=== PATIENT | male | born 1990 | race Caucasian/White ===

== ENCOUNTER 2017-03-26 08:27 | Emergency (ER) | payer BC ==
--- NOTE | 2017-03-26 08:59 | ED ---
General Adult HPI - General Chief complaint: Skin/Abscess/Foreign Body Stated complaint: FB IN THROAT Time Seen by Provider: 03/26/17 08:30 Source: patient, RN notes reviewed Mode of arrival: ambulatory Limitations: no limitations - History of Present Illness Initial comments: This is a 26-year-old male who states he was eating pistachios last night around midnight and he believes he swallowed shell. Patient states he woke up this morning felt the child was still in his esophagus he vomited once and it felt as though it moved up into the right side of his throat. Patient states he was a little blood in the emesis not a lot. Patient states it does feel painful to swallow but he is able to swallow at this time per patient denies any difficult to breathing at any time. Patient does believe it wasn't shell. - Related Data Home Medications Medication Instructions Recorded Confirmed Dextroamphetamine/Amphetamine 30 mg PO DAILY 08/27/15 03/26/17 [Adderall] Allergies Allergy/AdvReac Type Severity Reaction Status Date / Time tramadol Allergy Itching Verified 03/26/17 08:48 Review of Systems ROS Statement: Those systems with pertinent positive or pertinent negative responses have been documented in the HPI. ROS Other: All systems not noted in ROS Statement are negative. Past Medical History Additional Past Medical History / Comment(s): back pain History of Any Multi-Drug Resistant Organisms: None Reported Past Surgical History: Orthopedic Surgery Additional Past Surgical History / Comment(s): BILATERAL KNEE SURGERY Past Psychological History: ADD/ADHD Smoking Status: Current some day smoker Past Alcohol Use History: Occasional Past Drug Use History: Marijuana General Exam - General Exam Comments Initial Comments: GENERAL: Patient is well-developed and well-nourished. Patient is nontoxic and well- hydrated and is in mild distress. ENT: Neck is soft and supple. No significant lymphadenopathy is noted. Oropharynx is clear. Moist mucous membranes. Neck has full range of motion without eliciting any pain. EYES: The sclera were anicteric and conjunctiva were pink and moist. Extraocular movements were intact and pupils were equal round and reactive to light. Eyelids were unremarkable. PULMONARY: Unlabored respirations. Good breath sounds bilaterally. No audible rales rhonchi or wheezing was noted. CARDIOVASCULAR: There is a regular rate and rhythm without any murmurs gallops or rubs. ABDOMEN: Soft and nontender with normal bowel sounds. SKIN: Skin is clear with no lesions or rashes and otherwise unremarkable. NEUROLOGIC: Patient is alert and oriented x3. Cranial nerves II through XII are grossly intact. Motor and sensory are also intact. Normal speech, volume and content. Symmetrical smile. MUSCULOSKELETAL: Normal extremities with adequate strength and full range of motion. LYMPHATICS: No significant lymphadenopathy is noted PSYCHIATRIC: Normal psychiatric evaluation. Limitations: no limitations Course Vital Signs 03/26/17 03/26/17 03/26/17 08:29 08:47 09:27 Temperature 98.3 F 97.8 F Pulse Rate 95 100 93 Respiratory 18 18 18 Rate Blood Pressure 154/104 150/91 143/81 O2 Sat by Pulse 95 100 99 Oximetry 03/26/17 10:33 Temperature 98.0 F Pulse Rate 97 Respiratory 18 Rate Blood Pressure 143/79 O2 Sat by Pulse 98 Oximetry Medical Decision Making - Medical Decision Making I spoke with Dr. Gillis she agreed to come in and do an endoscopy on the patient to determine if the patient had a pistachio shell in his throat. Dr. Maciel came in and found an area that appeared to be irritated in the esophagus but no foreign body was found. She was able to eat and drink without problem. Disposition Clinical Impression: Globus hystericus Disposition: HOME SELF-CARE Instructions: Esophageal Foreign Body (ED) Referrals: Bob Carson MD [Primary Care Provider] - 1-2 days Time of Disposition: 11:35
--- NOTE | 2017-03-26 09:32 | XR ---
EXAMINATION TYPE: XR soft tissue neck DATE OF EXAM: 03/26/2017 9:03 AM COMPARISON: NONE HISTORY: Choking with pain TECHNIQUE: 2 views FINDINGS: Prevertebral soft tissue structures within normal limits. Epiglottis has a normal appearanc e. Osseous structures intact. Lung apices clear. No radiopaque foreign body IMPRESSION: No acute process
[2017-03-26] MEDS ORDERED: KETOROLAC 60 MG/2 ML VIAL IM STA (10:16)
[2017-03-26] MEDS ORDERED: KETOROLAC 60 MG/2 ML VIAL IVP STA (10:24)
[2017-03-26] MEDS ORDERED: SODIUM CHLORIDE 0.9% 1,000 ML IV ONE (11:05)
[2017-03-26] MEDS ORDERED: GLYCOPYRROLATE 0.2 MG/ML 2 ML VIAL ONE (11:14)
[2017-03-26] MEDS ORDERED: PROPOFOL 10 MG/ML 20 ML VIAL IV ONE (11:14)
[2017-03-26] MEDS ORDERED: MIDAZOLAM 2 MG/2 ML VIAL ONE (11:14)
[2017-03-26] MEDS ORDERED: LIDOCAINE 1% INJ 10MG/ML (20 ML MDV) ONE (11:14)
--- NOTE | 2017-03-26 11:35 | P.PCN ---
Date of Procedure: 03/26/17 Procedure(s) Performed: BRIEF HISTORY: Patient is a 26-year-old, pleasant, white male, came into the emergency room with acute dysphagia and odynophagia since last night. He ate pistachio with Shell and since then he started having severe pain in the suprasternal notch area with swallowing. He also had an episode of hematemesis while in the ER. He is hence scheduled for an upper endoscopy to evaluate further.. PROCEDURE PERFORMED: Esophagogastroduodenoscopy. PREOPERATIVE DIAGNOSIS: Acute food dysphagia and odynophagia. IV sedation per anesthesia. PROCEDURE: After informed consent was obtained, the patient was brought into the endoscopy unit. IV sedation was administered by Anesthesia under continuous monitoring. Initially the Olympus GIF-140 video endoscope was inserted into the mouth. Esophagus intubated without any difficulty. It was gradually advanced into the stomach and duodenum and carefully examined. The bulb and the second part of the duodenum appeared normal. The scope at this time was withdrawn to the stomach, adequately insufflated with air, and upon careful examination, mucosa of the antrum, body, cardia and the fundus appeared normal. The scope was then withdrawn into the esophagus. The GE junction was located at 39 cm from the incisors. The esophagus appeared normal. There were no erosions or ulcerations seen and the patient tolerated the procedure well. The pharyngeal area was also carefully examined and the visualized portions appeared normal with no foreign body noted. IMPRESSION: 1. Normal-appearing esophagus with no evidence of food impaction. 2. Normal-appearing pharynx with no foreign body noted. RECOMMENDATIONS: The findings of this examination were discussed with the patient. He can have a trial of soft diet and can be discharged home today..
[2017-03-26 13:19] VITALS: RESP 18
[2017-03-26 13:21] VITALS: BP 116/58; PULSE 88; TEMP 98.3
== END 2017-03-26 13:00 | disposition home or self-care (01) ==
LOC: EC 08:27
DX: F45.8 Other somatoform disorders (principal); F90.9 Attention-deficit hyperactivity disorder, unspecified type; F17.200 Nicotine dependence, unspecified, uncomplicated; Z79.899 Other long term (current) drug therapy; Z88.6 Allergy status to analgesic agent
CPT/HCPCS: 99283; 96374; 96361 ×2; 70360; 43235; J2250; J2001; J1885; J2704

== ENCOUNTER 2017-04-14 16:33 | Emergency (ER) | payer BC ==
[2017-04-14 16:51] VITALS: BP 145/70; PULSE 70; RESP 16; TEMP 97.6
--- NOTE | 2017-04-14 17:15 | ED ---
ENT HPI - General Chief complaint: Dental/Oral Stated complaint: Oral Pain Time Seen by Provider: 04/14/17 17:06 Source: patient, RN notes reviewed Mode of arrival: ambulatory Limitations: no limitations - History of Present Illness Initial comments: This is a 26-year-old male presents for dental pain. Patient states started today in the right upper region. Denies fever or chills. Patient states she has mild swelling. Patient did not contact a dentist. He tried some Orajel no relief no Tylenol Motrin. - Related Data Home Medications Medication Instructions Recorded Confirmed Dextroamphetamine/Amphetamine 30 mg PO DAILY 08/27/15 03/26/17 [Adderall] Previous Rx's Medication Instructions Recorded Acetaminophen-Codeine 300-30mg 1 tab PO Q4H PRN #20 tablet 04/14/17 [Tylenol #3] Ibuprofen [Motrin] 600 mg PO Q8HR PRN #30 tab 04/14/17 Penicillin V Potassium [Pen Vee K] 500 mg PO QID #40 tab 04/14/17 Allergies Allergy/AdvReac Type Severity Reaction Status Date / Time tramadol Allergy Itching Verified 03/26/17 08:48 Review of Systems ROS Statement: Those systems with pertinent positive or pertinent negative responses have been documented in the HPI. ROS Other: All systems not noted in ROS Statement are negative. Past Medical History Additional Past Medical History / Comment(s): back pain History of Any Multi-Drug Resistant Organisms: None Reported Past Surgical History: Orthopedic Surgery Additional Past Surgical History / Comment(s): BILATERAL KNEE SURGERY Past Psychological History: ADD/ADHD Smoking Status: Current some day smoker Past Alcohol Use History: Occasional Past Drug Use History: Marijuana General Exam Limitations: no limitations General appearance: alert, in no apparent distress Head exam: Present: atraumatic, normocephalic, normal inspection ENT exam: Present: mucous membranes moist. Absent: normal exam, normal oropharynx (Edentulous multiple dental caries, dental fracture) Neck exam: Present: normal inspection, full ROM. Absent: tenderness, meningismus, lymphadenopathy Respiratory exam: Present: normal lung sounds bilaterally. Absent: respiratory distress, wheezes, rales, rhonchi, stridor Cardiovascular Exam: Present: regular rate, normal rhythm, normal heart sounds. Absent: systolic murmur, diastolic murmur, rubs, gallop, clicks Course Vital Signs 04/14/17 16:50 Temperature 97.6 F Pulse Rate 70 Respiratory 16 Rate Blood Pressure 145/70 O2 Sat by Pulse 100 Oximetry Medical Decision Making - Medical Decision Making 26-year-old male presented for dental pain. Patient discharged on antibiotics pain medication follow-up with dentist. Disposition Clinical Impression: Toothache Disposition: HOME SELF-CARE Instructions: Toothache (ED) Additional Instructions: Please return to the Emergency Department if symptoms worsen or any other concerns.Please follow up with the [facility]. [facility] [place] [address]. Phone number for new patients or [phone] for existing patients. Prescriptions: Acetaminophen-Codeine 300-30mg [Tylenol #3] 1 tab PO Q4H PRN #20 tablet PRN Reason: pain Ibuprofen [Motrin] 600 mg PO Q8HR PRN #30 tab PRN Reason: Pain Penicillin V Potassium [Pen Vee K] 500 mg PO QID #40 tab Referrals: Bob Carson MD [Primary Care Provider] - 1-2 days Time of Disposition: 17:15
== END 2017-04-14 17:22 | disposition home or self-care (01) ==
LOC: EC 16:33
DX: K08.89 Other specified disorders of teeth and supporting structures (principal); F90.9 Attention-deficit hyperactivity disorder, unspecified type; F17.200 Nicotine dependence, unspecified, uncomplicated; Z79.899 Other long term (current) drug therapy; Z88.6 Allergy status to analgesic agent
CPT/HCPCS: 99282

== ENCOUNTER 2017-06-17 14:21 | Emergency (ER) | payer BC ==
[2017-06-17 14:36] VITALS: BP 141/90; PULSE 64; RESP 20; TEMP 97.3
[2017-06-17] MEDS ORDERED: KETOROLAC 30 MG/ML 1 ML VIAL IM STA (14:52)
[2017-06-17] MEDS ORDERED: DIAZEPAM 5 MG/ML 2 ML SYRINGE IM ONE (14:52)
--- NOTE | 2017-06-17 14:57 | ED ---
General Adult HPI - General Chief complaint: Back Pain/Injury Stated complaint: Lower Back/Abd Pain Time Seen by Provider: 06/17/17 14:38 Source: patient, RN notes reviewed Mode of arrival: wheelchair Limitations: no limitations - History of Present Illness Initial comments: 26-year-old male presents for evaluation of right lower back pain. Patient was leveling off the central for a swimming pool yesterday. Denies any specific trauma. Complains of gradual onset worsening right lower back pain. Patient has no previous history of significant back pain. No bowel or bladder incontinence. No sensory changes or weakness in the lower extremities. Patient did not take any medication prior to coming to the emergency department. States the pain is sharp in nature, moderate to severe. - Related Data Home Medications Medication Instructions Recorded Confirmed Dextroamphetamine/Amphetamine 30 mg PO DAILY 08/27/15 06/17/17 [Adderall] Previous Rx's Medication Instructions Recorded Ibuprofen [Motrin] 600 mg PO Q8HR PRN #24 tab 06/17/17 Allergies Allergy/AdvReac Type Severity Reaction Status Date / Time tramadol Allergy Itching Verified 06/17/17 14:36 Review of Systems ROS Statement: Those systems with pertinent positive or pertinent negative responses have been documented in the HPI. ROS Other: All systems not noted in ROS Statement are negative. Cardiovascular: Denies: chest pain Endocrine: Denies: fatigue Gastrointestinal: Denies: abdominal pain, nausea, vomiting Musculoskeletal: Reports: back pain Neurological: Denies: headache, weakness Past Medical History Additional Past Medical History / Comment(s): back pain History of Any Multi-Drug Resistant Organisms: None Reported Past Surgical History: Orthopedic Surgery Additional Past Surgical History / Comment(s): BILATERAL KNEE SURGERY Past Psychological History: ADD/ADHD Smoking Status: Current some day smoker Past Alcohol Use History: Occasional Past Drug Use History: Marijuana General Exam Limitations: no limitations General appearance: alert, in no apparent distress Head exam: Present: atraumatic, normocephalic Eye exam: Present: normal appearance, PERRL ENT exam: Present: normal exam, mucous membranes moist Neck exam: Present: normal inspection, full ROM. Absent: tenderness Respiratory exam: Present: normal lung sounds bilaterally. Absent: respiratory distress Cardiovascular Exam: Present: regular rate, normal rhythm GI/Abdominal exam: Present: soft. Absent: distended, tenderness Extremities exam: Present: normal inspection, full ROM, normal capillary refill. Absent: pedal edema, joint swelling Back exam: Present: normal inspection, muscle spasm, paraspinal tenderness. Absent: tenderness, vertebral tenderness Neurological exam: Present: alert, oriented X3, CN II-XII intact, other (No saddle anesthesia. No midline tenderness). Absent: motor sensory deficit Psychiatric exam: Present: normal affect, normal mood Skin exam: Present: warm, dry Course Vital Signs 06/17/17 14:33 Temperature 97.3 F L Pulse Rate 64 Respiratory 20 Rate Blood Pressure 141/90 O2 Sat by Pulse 100 Oximetry Medical Decision Making - Medical Decision Making 26 yo male presenting with right lower back pain. Patient has tenderness muscle spasm in the right paraspinal muscles. Strength in the lower extremities is 5 out of 5, no concerning features of history or examination. Pain is nontraumatic, associated with overuse. Patient is given Toradol and Valium. He is not driving. He will be given a prescription for Motrin and should follow-up with his primary care physician. Return to emergency department with worsening symptoms. Disposition Clinical Impression: Strain of lumbar region Disposition: HOME SELF-CARE Condition: Good Instructions: Acute Low Back Pain (ED) Prescriptions: Ibuprofen [Motrin] 600 mg PO Q8HR PRN #24 tab PRN Reason: Pain Referrals: Bob Carson MD [Primary Care Provider] - 1-2 days Time of Disposition: 14:57
== END 2017-06-17 15:18 | disposition home or self-care (01) ==
LOC: EC 14:21
DX: S39.012A Strain of muscle, fascia and tendon of lower back, initial encounter (principal); F90.9 Attention-deficit hyperactivity disorder, unspecified type; F17.200 Nicotine dependence, unspecified, uncomplicated; Z88.6 Allergy status to analgesic agent; Z79.899 Other long term (current) drug therapy; X50.1XXA Overexertion from prolonged static or awkward postures, initial encounter; Y93.89 Activity, other specified
CPT/HCPCS: 99283; 96372 ×2; J3360; J1885

== ENCOUNTER 2017-12-28 18:23 | Emergency (ER) | payer BC, OTHER ==
[2017-12-28 19:25] VITALS: BP 122/54; PULSE 63; RESP 18; TEMP 98.7
--- NOTE | 2017-12-28 19:59 | ED ---
URI HPI - General Chief Complaint: Upper Respiratory Infection Stated Complaint: cold & headache Time Seen by Provider: 12/28/17 19:47 Source: patient, RN notes reviewed, old records reviewed Mode of arrival: ambulatory - History of Present Illness Initial Comments: Patient is a 27 year old male with fever, sinus headache, chills, and minor cough for 3 days. He reports he called into work today. He states taht he ahs been taking motrin and tylenol. He reports that he has all childhood vaccines. He did not receive the infleunza vaccine. Denies any other symptoms. - Related Data Home Medications Medication Instructions Recorded Confirmed Acetaminophen [Tylenol] 650 mg PO Q6H PRN 12/28/17 12/28/17 Ibuprofen [Motrin] 800 mg PO Q8H PRN 12/28/17 12/28/17 Previous Rx's Medication Instructions Recorded Amoxic-Pot Clav 875-125Mg 1 tab PO Q12HR #20 tablet 12/28/17 [Augmentin 875-125] Oseltamivir [Tamiflu] 75 mg PO Q12HR #10 cap 12/28/17 Allergies Allergy/AdvReac Type Severity Reaction Status Date / Time tramadol Allergy Itching Verified 12/28/17 19:56 Review of Systems ROS Statement: Those systems with pertinent positive or pertinent negative responses have been documented in the HPI. ROS Other: All systems not noted in ROS Statement are negative. Past Medical History Additional Past Medical History / Comment(s): back pain History of Any Multi-Drug Resistant Organisms: None Reported Past Surgical History: Orthopedic Surgery Additional Past Surgical History / Comment(s): BILATERAL KNEE SURGERY Past Psychological History: ADD/ADHD Smoking Status: Current some day smoker Past Alcohol Use History: Occasional Past Drug Use History: Marijuana General Exam - General Exam Comments Initial Comments: This is a 27 year old male. No acute distress. General appearance: alert, in no apparent distress Head exam: Present: atraumatic, normocephalic, normal inspection Eye exam: Present: normal appearance, PERRL, EOMI. Absent: scleral icterus, conjunctival injection, periorbital swelling ENT exam: Present: normal exam, mucous membranes moist Neck exam: Present: normal inspection. Absent: tenderness, meningismus, lymphadenopathy Respiratory exam: Present: normal lung sounds bilaterally. Absent: respiratory distress, wheezes, rales, rhonchi, stridor Cardiovascular Exam: Present: regular rate, normal rhythm, normal heart sounds. Absent: systolic murmur, diastolic murmur, rubs, gallop, clicks GI/Abdominal exam: Present: soft, normal bowel sounds. Absent: distended, tenderness, guarding, rebound, rigid Back exam: Present: normal inspection Neurological exam: Present: alert, oriented X3, CN II-XII intact Psychiatric exam: Present: normal affect, normal mood Course Vital Signs 12/28/17 19:23 Temperature 98.7 F Pulse Rate 63 Respiratory 18 Rate Blood Pressure 122/54 O2 Sat by Pulse 100 Oximetry Medical Decision Making - Medical Decision Making 27 year old male with 3 days of sinus pain, fever, chills, minor cough. Patient at this time will be treated for sinusisits. Discussed possbility of viral influenza as well. Dsicussed continue to take OTC medications. Patient understands treatment plan and will comply. Disposition Clinical Impression: Upper respiratory infection, Sinusitis Disposition: HOME SELF-CARE Condition: Good Instructions: Upper Respiratory Infection (ED) Additional Instructions: Patient is keep taking Motrin and Tylenol for fever and pain. Take the medication as prescribed. Follow-up with primary care provider if symptoms continue to persist. Return to the emergency department if any alarming signs or symptoms occur. Prescriptions: Amoxic-Pot Clav 875-125Mg [Augmentin 875-125] 1 tab PO Q12HR #20 tablet Oseltamivir [Tamiflu] 75 mg PO Q12HR #10 cap Referrals: Bob Carson MD [Primary Care Provider] - 1-2 days Time of Disposition: 19:58
== END 2017-12-28 20:07 | disposition home or self-care (01) ==
LOC: EC 18:23
DX: J06.9 Acute upper respiratory infection, unspecified (principal); J32.9 Chronic sinusitis, unspecified; F17.200 Nicotine dependence, unspecified, uncomplicated; Z88.6 Allergy status to analgesic agent
CPT/HCPCS: 99283

== ENCOUNTER 2018-01-02 21:04 | Emergency (ER) | payer BC, OTHER ==
[2018-01-02 21:17] VITALS: BP 130/70; RESP 18; TEMP 98.6
[2018-01-02] MEDS ORDERED: predniSONE 50 MG TAB PO STA (21:23)
[2018-01-02] MEDS ORDERED: diphenhydrAMINE 25 MG CAP PO STA (21:23)
[2018-01-02] MEDS ORDERED: FAMOTIDINE 20 MG TAB PO STA (21:23)
--- NOTE | 2018-01-02 21:28 | ED ---
General Adult HPI - General Chief complaint: Skin/Abscess/Foreign Body Stated complaint: poss allergic reaction Time Seen by Provider: 01/02/18 21:18 Source: patient, RN notes reviewed Mode of arrival: ambulatory Limitations: no limitations - History of Present Illness Initial comments: This is a 27-year-old male who presents to emergency department with chief complaint of possible allergic reaction. Patient states that approximate 5:30 this evening he noticed hives on his bilateral elbows. Patient denies any exposure to new fragrances, laundry detergents or soaps. He denies allergies to foods or medications. Patient is unable to pinpoint what he came into contact with. Patient states the only medication he has taken today is TheraFlu. He states that the rash is very itchy and has a burning sensation. He states that he has had a productive cough with yellow phlegm. Patient states that he feels he is having difficulty breathing. He states that he has been feeling very warm and sweating today. Denies abdominal pain, nausea or vomiting, diarrhea or constipation, headache or dizziness. - Related Data Home Medications Medication Instructions Recorded Confirmed Acetaminophen [Tylenol] 650 mg PO Q6H PRN 12/28/17 12/28/17 Ibuprofen [Motrin] 800 mg PO Q8H PRN 12/28/17 12/28/17 Previous Rx's Medication Instructions Recorded Amoxic-Pot Clav 875-125Mg 1 tab PO Q12HR #20 tablet 12/28/17 [Augmentin 875-125] Oseltamivir [Tamiflu] 75 mg PO Q12HR #10 cap 12/28/17 Famotidine [Pepcid] 20 mg PO BID #8 tablet 01/02/18 diphenhydrAMINE [Benadryl] 25 mg PO QID PRN #16 capsule 01/02/18 predniSONE 20 mg PO DAILY #4 tab 01/02/18 Allergies Allergy/AdvReac Type Severity Reaction Status Date / Time tramadol Allergy Itching Verified 01/02/18 21:15 Review of Systems ROS Statement: Those systems with pertinent positive or pertinent negative responses have been documented in the HPI. ROS Other: All systems not noted in ROS Statement are negative. Past Medical History Additional Past Medical History / Comment(s): back pain History of Any Multi-Drug Resistant Organisms: None Reported Past Surgical History: Orthopedic Surgery Additional Past Surgical History / Comment(s): BILATERAL KNEE SURGERY Past Psychological History: ADD/ADHD Smoking Status: Current some day smoker Past Alcohol Use History: Rare Past Drug Use History: Marijuana General Exam - General Exam Comments Initial Comments: General: Awake and alert, well-developed; in no apparent distress. HEENT: Head atraumatic, normocephalic. Pupils are equal, round and reactive to light. Extraocular movements intact. Oropharynx moist without erythema or exudate. Neck: Supple. Normal ROM. Cardiovascular: Regular rate and rhythm. No murmurs, rubs or gallops. Chest symmetrical. Respiratory: Normal respiratory effort with no use of accessory muscles. Rhonchi present left upper lung. No wheezes or rales. Musculoskeletal: Normal ROM, no tenderness bilateral upper and lower extremities. Ambulating normally. Skin: [place], warm and dry. Urticaria noted at bilateral elbows. Neurological: Alert and oriented x3. CN II-XII grossly intact. Speech is fluent and answers are appropriate. No focal neuro deficits. Psychiatric: Normal mood and affect. No overt signs of depression or anxiety noted. Limitations: no limitations Course Vital Signs 01/02/18 21:15 Temperature 98.6 F Pulse Rate 78 Respiratory 18 Rate Blood Pressure 130/70 O2 Sat by Pulse 97 Oximetry Medical Decision Making - Medical Decision Making This is a 27-year-old male who presents to the emergency department with chief complaint of possible allergic reaction. Patient does have urticaria on bilateral elbows. He was given Pepcid, Benadryl and prednisone while in the emergency department. Patient also complained of a productive cough with some difficulty breathing. Diffuse rhonchi noted in left upper lung. A chest x-ray was obtained. X-ray revealed evidence for bronchitis. Recommended symptomatic support and increasing fluid intake. Patient's vital signs are stable and he is in no acute distress. He will be discharged home with further prescriptions for Pepcid, Benadryl and prednisone. Return parameters were discussed. Patient is in agreement with plan and voices understanding. All questions were answered. - Radiology Data Radiology results: report reviewed Chest x-ray impression: Correlate for bronchitis, reactive airways disease. Disposition Clinical Impression: Urticaria, Bronchitis Disposition: HOME SELF-CARE Condition: Good Instructions: Urticaria (ED), Acute Bronchitis (ED) Additional Instructions: Please take medications as prescribed. Please follow up with primary care provider within 1-2 days. Return to emergency department if symptoms should worsen or any concerns arise. Prescriptions: diphenhydrAMINE [Benadryl] 25 mg PO QID PRN #16 capsule PRN Reason: Itching Famotidine [Pepcid] 20 mg PO BID #8 tablet predniSONE 20 mg PO DAILY #4 tab Referrals: Bob Carson MD [Primary Care Provider] - 1-2 days Time of Disposition: 21:53
--- NOTE | 2018-01-02 21:38 | XR ---
EXAMINATION TYPE: XR chest 2V DATE OF EXAM: 01/02/2018 COMPARISON: Prior chest x-ray 07/03/2016 HISTORY: Cough and difficulty breathing TECHNIQUE: Frontal and lateral views of the chest are obtained. FINDINGS: Patient is rotated. There is no focal air space opacity, pleural effusion, or pneumothorax seen. The cardiac silhouette size is within normal limits. There is bronchial wall thickening. The osseous structures are intact. IMPRESSION: Correlate for bronchitis, reactive airways disease
[2018-01-02 22:00] VITALS: PULSE 60
== END 2018-01-02 22:00 | disposition home or self-care (01) ==
LOC: EC 21:04
DX: L50.9 Urticaria, unspecified (principal); J40 Bronchitis, not specified as acute or chronic; F17.200 Nicotine dependence, unspecified, uncomplicated; Z88.5 Allergy status to narcotic agent
CPT/HCPCS: 71046; 99284; J7512

== ENCOUNTER 2018-01-27 20:21 | Emergency (ER) | payer OTHER ==
[2018-01-27 20:34] VITALS: BP 133/74; PULSE 85; RESP 16; TEMP 98.2
--- NOTE | 2018-01-27 20:55 | ED ---
General Adult HPI - General Chief complaint: Dental/Oral Stated complaint: dental pain Time Seen by Provider: 01/27/18 20:44 Source: patient Mode of arrival: ambulatory Limitations: no limitations - History of Present Illness Initial comments: 27-year-old male presents to the emergency department for complaints of tooth pain since yesterday. Patient states a filling fell out. Patient states he does not have a dentist. He states the pain is severe and he is uncomfortable. He states that hot and cold liquids hurt his tooth and it even hurts to swallow. Patient states he took 600 mg of ibuprofen 4 hours ago which helps minimally. He states he would be willing to go to a free clinic. Patient denies fever or chills. Patient denies neck pain or sore throat. He also denies difficulty opening and closing the jaw. - Related Data Home Medications Medication Instructions Recorded Confirmed Acetaminophen [Tylenol] 650 mg PO Q6H PRN 12/28/17 12/28/17 Ibuprofen [Motrin] 800 mg PO Q8H PRN 12/28/17 12/28/17 Previous Rx's Medication Instructions Recorded Amoxic-Pot Clav 875-125Mg 1 tab PO Q12HR #20 tablet 12/28/17 [Augmentin 875-125] Oseltamivir [Tamiflu] 75 mg PO Q12HR #10 cap 12/28/17 Famotidine [Pepcid] 20 mg PO BID #8 tablet 01/02/18 diphenhydrAMINE [Benadryl] 25 mg PO QID PRN #16 capsule 01/02/18 predniSONE 20 mg PO DAILY #4 tab 01/02/18 Acetaminophen-Codeine 300-30mg 1 tab PO Q4H PRN #10 tablet 01/27/18 [Tylenol #3] Penicillin V Potassium [Pen Vee K] 500 mg PO Q6H 10 Days tablet 01/27/18 Allergies Allergy/AdvReac Type Severity Reaction Status Date / Time tramadol Allergy Itching Verified 01/27/18 20:34 Review of Systems ROS Statement: Those systems with pertinent positive or pertinent negative responses have been documented in the HPI. ROS Other: All systems not noted in ROS Statement are negative. Past Medical History Additional Past Medical History / Comment(s): back pain History of Any Multi-Drug Resistant Organisms: None Reported Past Surgical History: Orthopedic Surgery Additional Past Surgical History / Comment(s): BILATERAL KNEE SURGERY Past Psychological History: ADD/ADHD Smoking Status: Current some day smoker Past Alcohol Use History: Rare Past Drug Use History: Marijuana General Exam Limitations: no limitations Head exam: Present: atraumatic, normocephalic, normal inspection Eye exam: Present: normal appearance, PERRL, EOMI. Absent: scleral icterus, conjunctival injection, periorbital swelling ENT exam: Present: normal oropharynx (Poor dental hygiene noted. Multiple teeth missing. Patient complains of pain in tooth 3 which appears to be broken or have a missing filling.), mucous membranes moist, TM's normal bilaterally, normal external ear exam. Absent: normal exam Neck exam: Present: normal inspection. Absent: tenderness, meningismus, lymphadenopathy Respiratory exam: Present: normal lung sounds bilaterally. Absent: respiratory distress, wheezes, rales, rhonchi, stridor Cardiovascular Exam: Present: regular rate, normal rhythm, normal heart sounds. Absent: systolic murmur, diastolic murmur, rubs, gallop, clicks GI/Abdominal exam: Present: soft, normal bowel sounds. Absent: distended, tenderness, guarding, rebound, rigid Neurological exam: Present: alert, oriented X3, CN II-XII intact Psychiatric exam: Present: normal affect, normal mood Course Vital Signs 01/27/18 20:32 Temperature 98.2 F Pulse Rate 85 Respiratory 16 Rate Blood Pressure 133/74 O2 Sat by Pulse 100 Oximetry Medical Decision Making - Medical Decision Making 27-year-old male presents to the emergency department for a chief complaint of tooth pain. The pain is into 3. Patient has poor dental hygiene as noted on exam. Patient states he does not have a dentist but would be willing to go to a free clinic. Patient has taken ibuprofen it helps minimally. Discussed pain management with Dr. Sanchez who advised to prescribe a small course of Tylenol 3. Patient will be told to continue ibuprofen helped the swelling as well as ice his face. If pain is severe he is to take the Tylenol 3. He is to follow-up with a dental clinic. Phone number and Address was given on separate piece of paper. He also agrees to take the antibiotic as directed. Please return to the emergency department if you notice the infection spreading or pain worsens. Disposition Clinical Impression: Tooth pain Disposition: HOME SELF-CARE Condition: Good Instructions: Dental Abscess (ED), Toothache (ED) Additional Instructions: Please take antibiotics as directed. Please follow-up with free dental clinic. Use ibuprofen and ice to treat pain. Take Tylenol 3 if pain is severe. [facility] dental clinic: [address] [place] [address] [place], [place] [phone] - call for an appointment Prescriptions: Acetaminophen-Codeine 300-30mg [Tylenol #3] 1 tab PO Q4H PRN #10 tablet PRN Reason: Pain Penicillin V Potassium [Pen Vee K] 500 mg PO Q6H 10 Days tablet Referrals: Bob Carson MD [Primary Care Provider] - 1-2 days Time of Disposition: 21:22
== END 2018-01-27 21:27 | disposition home or self-care (01) ==
LOC: EC 20:21
DX: K08.89 Other specified disorders of teeth and supporting structures (principal); F17.200 Nicotine dependence, unspecified, uncomplicated; Z88.6 Allergy status to analgesic agent
CPT/HCPCS: 99282

== ENCOUNTER 2018-12-12 13:45 | Emergency (ER) | payer BC, OTHER ==
[2018-12-12 13:52] VITALS: BP 141/100; PULSE 106; RESP 16; TEMP 98.2
[2018-12-12] MEDS ORDERED: ACET/COD 300 MG/30 MG STARTER PACK 6 TAB BTL PO STA (14:29)
--- NOTE | 2018-12-12 14:29 | ED ---
ENT HPI - General Chief complaint: Dental/Oral Stated complaint: Dental abscess Time Seen by Provider: 12/12/18 14:19 Source: patient, RN notes reviewed Mode of arrival: ambulatory Limitations: no limitations - History of Present Illness Initial comments: 28-year-old male presents emergency Department with chief complaint of left lower dental pain. Patient states she was at the dental clinic this morning and they are closing early sore and unable take care of him. He states the pain is unbearable. Patient is scheduled go back tomorrow morning. Patient reports no fever or chills. Patient has very poor dentition. Patient denies any difficulty swallowing no difficult opening closing his mouth. - Related Data Home Medications Medication Instructions Recorded Confirmed Acetaminophen [Tylenol] 650 mg PO Q6H PRN 12/28/17 12/28/17 Ibuprofen [Motrin] 800 mg PO Q8H PRN 12/28/17 12/28/17 Previous Rx's Medication Instructions Recorded Amoxic-Pot Clav 875-125Mg 1 tab PO Q12HR #20 tablet 12/28/17 [Augmentin 875-125] Oseltamivir [Tamiflu] 75 mg PO Q12HR #10 cap 12/28/17 Famotidine [Pepcid] 20 mg PO BID #8 tablet 01/02/18 diphenhydrAMINE [Benadryl] 25 mg PO QID PRN #16 capsule 01/02/18 predniSONE 20 mg PO DAILY #4 tab 01/02/18 Acetaminophen-Codeine 300-30mg 1 tab PO Q4H PRN #10 tablet 01/27/18 [Tylenol #3] Penicillin V Potassium [Pen Vee K] 500 mg PO Q6H 10 Days tablet 01/27/18 Penicillin V Potassium [Pen Vee K] 500 mg PO QID #40 tablet 12/12/18 Allergies Allergy/AdvReac Type Severity Reaction Status Date / Time tramadol Allergy Itching Verified 12/12/18 13:52 Review of Systems ROS Statement: Those systems with pertinent positive or pertinent negative responses have been documented in the HPI. ROS Other: All systems not noted in ROS Statement are negative. Past Medical History Additional Past Medical History / Comment(s): back pain History of Any Multi-Drug Resistant Organisms: None Reported Past Surgical History: Orthopedic Surgery Additional Past Surgical History / Comment(s): BILATERAL KNEE SURGERY Past Psychological History: ADD/ADHD Smoking Status: Current some day smoker Past Alcohol Use History: Rare Past Drug Use History: Marijuana General Exam Limitations: no limitations General appearance: alert, in no apparent distress Head exam: Present: atraumatic, normocephalic, normal inspection Eye exam: Present: normal appearance, PERRL, EOMI. Absent: scleral icterus, conjunctival injection, periorbital swelling ENT exam: Present: mucous membranes moist, TM's normal bilaterally. Absent: normal oropharynx (Very poor dentition, multiple dental caries, dental erosion, no drainable abscess multiple dental fractures) Neck exam: Present: normal inspection, full ROM. Absent: tenderness, meningismus, lymphadenopathy Respiratory exam: Present: normal lung sounds bilaterally. Absent: respiratory distress, wheezes, rales, rhonchi, stridor Cardiovascular Exam: Present: regular rate, normal rhythm, normal heart sounds. Absent: systolic murmur, diastolic murmur, rubs, gallop, clicks Skin exam: Present: warm, dry, intact, normal color. Absent: rash Course Vital Signs 12/12/18 13:50 Temperature 98.2 F Pulse Rate 106 H Respiratory 16 Rate Blood Pressure 141/100 O2 Sat by Pulse 98 Oximetry Medical Decision Making - Medical Decision Making 28-year-old male presented for dental pain. Patient be given antibiotics and pain medication. Patient scheduled see dental clinic tomorrow. Return parameters were discussed. Disposition Clinical Impression: Dental caries, Fracture of tooth, Dental abscess Disposition: HOME SELF-CARE Condition: Stable Instructions (If sedation given, give patient instructions): Toothache (ED), Dental Caries (ED) Additional Instructions: Please return to the Emergency Department if symptoms worsen or any other concerns. Prescriptions: Penicillin V Potassium [Pen Vee K] 500 mg PO QID #40 tablet Is patient prescribed a controlled substance at d/c from ED?: No Referrals: Ajay Duque MD [Primary Care Provider] - 1-2 days Time of Disposition: 14:28
== END 2018-12-12 14:45 | disposition home or self-care (01) ==
LOC: EC 13:45
DX: S02.5XXA Fracture of tooth (traumatic), initial encounter for closed fracture (principal); K04.7 Periapical abscess without sinus; K02.9 Dental caries, unspecified; K03.2 Erosion of teeth; F17.200 Nicotine dependence, unspecified, uncomplicated; Z98.890 Other specified postprocedural states; Z88.5 Allergy status to narcotic agent; X58.XXXA Exposure to other specified factors, initial encounter
CPT/HCPCS: 99282

== ENCOUNTER 2019-01-14 22:48 | Emergency (ER) | payer OTHER ==
[2019-01-14 22:57] VITALS: BP 152/97; PULSE 68; RESP 16
[2019-01-14] MEDS ORDERED: ACET/COD 300 MG/30 MG STARTER PACK 6 TAB BTL PO STA (23:02)
[2019-01-14] MEDS ORDERED: BUPIVACAINE (PF) 0.5% 30 ML VIAL SQ STA (23:02)
[2019-01-14 23:39] VITALS: TEMP 98.6
[2019-01-14] MEDS ORDERED: BUPIVACAINE (PF) 0.75% 10 ML VIAL SQ ONE (23:45)
--- NOTE | 2019-01-14 23:57 | ED ---
General Adult HPI - General Chief complaint: Dental/Oral Stated complaint: Dental Pain Following Tooth Extrac. INQUICKER Time Seen by Provider: 01/14/19 22:59 Source: patient, RN notes reviewed Mode of arrival: ambulatory Limitations: no limitations - History of Present Illness Initial comments: 28 year old male presents to the emergency department for a chief complaint of dental pain. Patient got his teeth pulled about 5 days ago. Dental pain started one day after. Patient states he did follow up with the dentist but they told him to take Motrin. He states he will do anything to help pain. He denies any neck pain or stiffness. He denies any sublingual swelling. He denies any sublingual pain. He states all the pain is in the left upper tooth Patient has no other complaints at this time including shortness of breath, chest pain, abdominal pain, nausea or vomiting, headache, or visual changes. - Related Data Home Medications Medication Instructions Recorded Confirmed Ibuprofen [Motrin] 800 mg PO Q8H PRN 12/28/17 01/14/19 Acetaminophen Tab [Tylenol Tab] 1,000 mg PO Q6HR PRN 01/14/19 01/14/19 Allergies Allergy/AdvReac Type Severity Reaction Status Date / Time tramadol Allergy Itching Verified 01/14/19 23:05 Review of Systems ROS Statement: Those systems with pertinent positive or pertinent negative responses have been documented in the HPI. ROS Other: All systems not noted in ROS Statement are negative. Past Medical History Additional Past Medical History / Comment(s): back pain History of Any Multi-Drug Resistant Organisms: None Reported Past Surgical History: Orthopedic Surgery Additional Past Surgical History / Comment(s): BILATERAL KNEE SURGERY Past Psychological History: ADD/ADHD Smoking Status: Current some day smoker Past Alcohol Use History: Rare Past Drug Use History: Marijuana General Exam Limitations: no limitations General appearance: alert, in no apparent distress Head exam: Present: atraumatic, normocephalic, normal inspection Eye exam: Present: normal appearance, PERRL, EOMI. Absent: scleral icterus, conjunctival injection, periorbital swelling ENT exam: Present: normal exam, mucous membranes moist, TM's normal bilaterally , normal external ear exam. Absent: normal oropharynx (Patient has had tooth extractions noted from tooth 11 to tooth 8) Neck exam: Present: normal inspection, full ROM. Absent: tenderness, meningismus, lymphadenopathy Respiratory exam: Present: normal lung sounds bilaterally. Absent: respiratory distress, wheezes, rales, rhonchi, stridor Cardiovascular Exam: Present: regular rate, normal rhythm, normal heart sounds. Absent: systolic murmur, diastolic murmur, rubs, gallop, clicks Neurological exam: Present: alert, oriented X3, CN II-XII intact Psychiatric exam: Present: normal affect, normal mood Course Vital Signs 01/14/19 01/14/19 22:54 23:39 Temperature 98.4 F 98.6 F Pulse Rate 68 Respiratory 16 Rate Blood Pressure 152/97 O2 Sat by Pulse 100 Oximetry Procedures - Procedures Initial comment: While retracting the lip, inserted the needle into the intersection of the mucobuccal fold and the apex/center of the canine at a 45-degree angle, advancing the needle approximately 1-1.5 cm. Aspirated. Slowly injected 2 mL of bupivicaine and massaged for 10-20 seconds. Medical Decision Making - Medical Decision Making Numb the area. Patient does have noted toothache section and exam. Bupivacaine was used to numb the canine with success. Patient was given Tylenol 3 and told to take Motrin but if he had breakthrough pain to take Tylenol 3. Educated not to drive or operate machinery on this. Patient's mother is picking him up. Patient states he is following up with the dentist tomorrow. He will return here if he has any worsening symptoms. Disposition Clinical Impression: Pain, dental Disposition: HOME SELF-CARE Condition: Good Instructions (If sedation given, give patient instructions): Toothache (ED) Additional Instructions: Please take dentist in 1-2 days. Take Motrin for pain. If pain is severe take Tylenol 3. Do not drive or operate machinery while taking Tylenol 3. Return to the emergency department if you have any worsening symptoms. Is patient prescribed a controlled substance at d/c from ED?: No Referrals: Ajay Duque MD [Primary Care Provider] - 1-2 days Time of Disposition: 23:58
== END 2019-01-15 00:13 | disposition home or self-care (01) ==
LOC: EC 22:48
DX: K08.89 Other specified disorders of teeth and supporting structures (principal); F17.200 Nicotine dependence, unspecified, uncomplicated; Z88.5 Allergy status to narcotic agent
CPT/HCPCS: 64400; 99282

== ENCOUNTER 2019-03-25 21:30 | Emergency (ER) | payer OTHER ==
[2019-03-25] MEDS ORDERED: BUPIVACAINE (PF) 0.5% 30 ML VIAL MISCELLANE STA (22:08)
[2019-03-25] MEDS ORDERED: Acetaminophen-Codeine 300-30mg TAB PO STA (22:43)
--- NOTE | 2019-03-25 22:52 | ED ---
General Adult HPI - General Chief complaint: Dental/Oral Stated complaint: Oral Pain Time Seen by Provider: 03/25/19 21:52 Source: patient, RN notes reviewed Mode of arrival: ambulatory Limitations: no limitations - History of Present Illness Initial comments: 28-year-old male presents to the emergency department for a chief complaint of dental pain. Patient has had pain for about 5 days. Patient had all his bottom teeth pulled 5 days ago. Patient states tooth 28 is the tooth that is causing him pain. Patient denies fevers or chills. Patient states he did see the dentist today and they gave him a cold packing but it did not help at all. States that he is going to follow up again tomorrow but needs something for the pain tonight. Patient states he has been taking Motrin but is no longer helping. Denies any drainage. Denies any swelling of the tongue. Denies any neck pain or stiffness.Patient has no other complaints at this time including shortness of breath, chest pain, abdominal pain, nausea or vomiting, headache, or visual changes. - Related Data Home Medications Medication Instructions Recorded Confirmed Ibuprofen [Motrin] 800 mg PO Q8H PRN 12/28/17 01/14/19 Acetaminophen Tab [Tylenol Tab] 1,000 mg PO Q6HR PRN 01/14/19 01/14/19 Previous Rx's Medication Instructions Recorded Penicillin V Potassium [Pen Vee K] 500 mg PO Q6H 10 Days #40 tablet 03/25/19 Allergies Allergy/AdvReac Type Severity Reaction Status Date / Time tramadol Allergy Itching Verified 03/25/19 21:38 Review of Systems ROS Statement: Those systems with pertinent positive or pertinent negative responses have been documented in the HPI. ROS Other: All systems not noted in ROS Statement are negative. Past Medical History Additional Past Medical History / Comment(s): back pain History of Any Multi-Drug Resistant Organisms: None Reported Past Surgical History: Orthopedic Surgery Additional Past Surgical History / Comment(s): BILATERAL KNEE SURGERY Past Psychological History: ADD/ADHD Smoking Status: Current every day smoker Past Alcohol Use History: Rare Past Drug Use History: Marijuana General Exam Limitations: no limitations General appearance: alert, in no apparent distress Head exam: Present: atraumatic, normocephalic, normal inspection Eye exam: Present: normal appearance, PERRL, EOMI. Absent: scleral icterus, conjunctival injection, periorbital swelling ENT exam: Present: normal exam, mucous membranes moist, TM's normal bilaterally, normal external ear exam. Absent: normal oropharynx (Patient has all teeth pulled on the lower mandible. Complaining of pain around tooth 28. No abscess noted. No drainage. There is erythema of the gumline.) Neck exam: Present: normal inspection, full ROM. Absent: tenderness, meningismus, lymphadenopathy Respiratory exam: Present: normal lung sounds bilaterally. Absent: respiratory distress, wheezes, rales, rhonchi, stridor Cardiovascular Exam: Present: regular rate, normal rhythm, normal heart sounds. Absent: systolic murmur, diastolic murmur, rubs, gallop, clicks Neurological exam: Present: alert, oriented X3, CN II-XII intact Psychiatric exam: Present: normal affect, normal mood Course Vital Signs 03/25/19 21:35 Temperature 98.8 F Pulse Rate 103 H Respiratory 20 Rate Blood Pressure 156/88 O2 Sat by Pulse 100 Oximetry Procedures - Nerve Block Consent Obtained: verbal consent Local Anesthetic Used: Other (Bupivacaine) Amount of anesthesia used: 3 Side: right Intraoral Nerve Block: inferior alveolar Procedure Successful: Yes Complications: none Patient Tolerated Procedure: well, no complications Additional Comments: Aspiration performed before injection Medical Decision Making - Medical Decision Making 28-year-old male presents to the emergency department for a chief complaint of dental pain. States this has been ongoing since he had his teeth pulled. However pain in tooth 28 is getting worse. No fevers or chills. No neck pain or stiffness. On exam patient has had all teeth removed. There is no abscess. I did perform an infraorbital alveolar nerve block which did provide patient relief. He was also given a Tylenol 3, not driving home. He will follow up with his dentist tomorrow. Will also be started on penicillin. Discussed returning here if he has any worsening symptoms. Disposition Clinical Impression: Toothache Disposition: HOME SELF-CARE Condition: Good Instructions (If sedation given, give patient instructions): Toothache (ED) Additional Instructions: Please continue to take Motrin and Tylenol for pain. Please take penicillin as directed. Follow-up with your dentist tomorrow. Return here if you have any worsening symptoms. Prescriptions: Penicillin V Potassium [Pen Vee K] 500 mg PO Q6H 10 Days #40 tablet Is patient prescribed a controlled substance at d/c from ED?: No Referrals: Ajay Duque MD [Primary Care Provider] - 1-2 days Time of Disposition: 22:51
[2019-03-25 23:06] VITALS: BP 134/92; PULSE 86; RESP 18; TEMP 98.5
== END 2019-03-25 23:04 | disposition home or self-care (01) ==
LOC: EC 21:30
DX: K08.89 Other specified disorders of teeth and supporting structures (principal); F17.200 Nicotine dependence, unspecified, uncomplicated; Z88.5 Allergy status to narcotic agent
CPT/HCPCS: 64450; 99282

== ENCOUNTER 2019-06-25 03:50 | Emergency (ER) | payer OTHER ==
[2019-06-25 04:10] VITALS: PULSE 105; RESP 16; TEMP 98.8
[2019-06-25] MEDS ORDERED: IBUPROFEN 600 MG TAB PO STA (04:53)
--- NOTE | 2019-06-25 04:53 | ED ---
Upper Extremity HPI - General Chief Complaint: Extremity Injury, Upper Stated Complaint: R shoulder pain Time Seen by Provider: 06/25/19 04:35 Source: patient Mode of arrival: ambulatory Limitations: no limitations - History of Present Illness Initial Comments: This patient is 28-year-old man who presents for evaluation of hours he is indicating his right shoulder pain. He states it come on a couple of days ago after playing basketball. He denies any direct trauma to the shoulder. No weakness or numbness of the extremity. Complaint: Injury to:: right, shoulder -: days(s) Other Injuries: none Handedness: right Place: outdoors Improves With: none Worsens With: movement of extremity Context: sports-related injury Associated Symptoms: denies other symptoms - Related Data Home Medications Medication Instructions Recorded Confirmed Ibuprofen [Motrin] 800 mg PO Q8H PRN 12/28/17 01/14/19 Acetaminophen Tab [Tylenol Tab] 1,000 mg PO Q6HR PRN 01/14/19 01/14/19 Previous Rx's Medication Instructions Recorded Penicillin V Potassium [Pen Vee K] 500 mg PO Q6H 10 Days #40 tablet 03/25/19 Ibuprofen [Motrin] 600 mg PO Q8HR PRN #20 tab 06/25/19 Methocarbamol [Robaxin-750] 750 mg PO TID PRN #30 tablet 06/25/19 Allergies Allergy/AdvReac Type Severity Reaction Status Date / Time tramadol Allergy Itching Verified 03/25/19 21:38 Review of Systems ROS Statement: Those systems with pertinent positive or pertinent negative responses have been documented in the HPI. ROS Other: All systems not noted in ROS Statement are negative. Constitutional: Denies: fever, chills Respiratory: Denies: dyspnea Cardiovascular: Denies: chest pain, palpitations Gastrointestinal: Denies: abdominal pain Musculoskeletal: Reports: as per HPI, myalgia. Denies: joint swelling, arthralgia Skin: Denies: rash Neurological: Denies: headache, weakness, numbness Past Medical History Additional Past Medical History / Comment(s): back pain History of Any Multi-Drug Resistant Organisms: None Reported Past Surgical History: Orthopedic Surgery Additional Past Surgical History / Comment(s): BILATERAL KNEE SURGERY Past Psychological History: ADD/ADHD Smoking Status: Current every day smoker Past Alcohol Use History: Rare Past Drug Use History: Marijuana General Exam Limitations: no limitations General appearance: alert, in no apparent distress Head exam: Present: atraumatic, normocephalic Eye exam: Present: normal appearance Neck exam: Present: normal inspection, full ROM. Absent: tenderness, meningismus Respiratory exam: Present: normal lung sounds bilaterally. Absent: respiratory distress, wheezes, rales, rhonchi, stridor Cardiovascular Exam: Present: regular rate, normal rhythm, normal heart sounds Back exam: Present: normal inspection, paraspinal tenderness (Patient has upper back paraspinal and rhomboid tenderness). Absent: CVA tenderness (R), CVA tenderness (L), vertebral tenderness Course Vital Signs 06/25/19 06/25/19 04:07 06:50 Temperature 98.8 F Pulse Rate 105 H Respiratory 16 Rate Blood Pressure 142/98 143/81 O2 Sat by Pulse 99 Oximetry Medical Decision Making - Medical Decision Making Patient's physical exam and history suggest muscle strain. Patient did have x- rays shoulder that show some separation of the before meals but this appears to be chronic. No tenderness. Discussed appropriate further care and follow-up Disposition Clinical Impression: Muscle strain Disposition: HOME SELF-CARE Condition: Good Instructions (If sedation given, give patient instructions): Muscle Strain (ED) Prescriptions: Ibuprofen [Motrin] 600 mg PO Q8HR PRN #20 tab PRN Reason: Pain Methocarbamol [Robaxin-750] 750 mg PO TID PRN #30 tablet PRN Reason: pain Is patient prescribed a controlled substance at d/c from ED?: No Referrals: Ajay Duque MD [Primary Care Provider] - 1-2 days
[2019-06-25] MEDS ORDERED: DIAZEPAM 5 MG TAB PO STA (04:54)
--- NOTE | 2019-06-25 04:59 | XR ---
EXAM: XR Right Shoulder Complete, 2 or More Views CLINICAL HISTORY: ITS.REASON XR Reason: Pain TECHNIQUE: Two or more views of the right shoulder. COMPARISON: No relevant prior studies available. FINDINGS: Bones/joints: No evidence of acute fracture. Slightly elevated distal clavicle. No evidence of glenohumeral dislocation. Soft tissues: No radiopaque foreign body. IMPRESSION: 1. No evidence of acute fracture. 2. Slightly elevated distal clavicle. Correlate clinically regarding AC joint injury.
[2019-06-25] MEDS ORDERED: ORPHENADRINE 30 MG/ML 2 ML VIAL IM STA (06:12)
[2019-06-25 06:51] VITALS: BP 143/81
== END 2019-06-25 06:51 | disposition home or self-care (01) ==
LOC: EC 03:50
DX: S46.911A Strain of unspecified muscle, fascia and tendon at shoulder and upper arm level, right arm, initial encounter (principal); S43.101A Unspecified dislocation of right acromioclavicular joint, initial encounter; F17.200 Nicotine dependence, unspecified, uncomplicated; Z88.6 Allergy status to analgesic agent; Y93.67 Activity, basketball; Y92.89 Other specified places as the place of occurrence of the external cause
CPT/HCPCS: 73030; 99283; 96372; J2360

== ENCOUNTER 2020-01-11 10:38 | Emergency (ER) | payer OTHER ==
[2020-01-11 10:42] VITALS: BP 138/83; PULSE 91; RESP 16; TEMP 98.5
--- NOTE | 2020-01-11 10:44 | ED ---
URI HPI - General Chief Complaint: Upper Respiratory Infection Stated Complaint: Cough, fever Time Seen by Provider: 01/11/20 10:45 Source: patient Mode of arrival: ambulatory Limitations: no limitations - History of Present Illness Initial Comments: 29-year-old male presenting today for chief complaint of cough fever he states he is so congestion he he cnat breath through his nose patient denies any difficulty in breathing "as in the lungs". Patient denies chest pain, leg swelling, MURRAY, neck stiffness, vomiting, diarrhea, abdominal pain. Patient admit to slightly sore throat. Patient has no other complaints. Upon arrival patient appears nontoxic. - Related Data Home Medications Medication Instructions Recorded Confirmed Ibuprofen [Motrin] 800 mg PO Q8H PRN 12/28/17 01/14/19 Acetaminophen Tab [Tylenol Tab] 1,000 mg PO Q6HR PRN 01/14/19 01/14/19 Previous Rx's Medication Instructions Recorded Penicillin V Potassium [Pen Vee K] 500 mg PO Q6H 10 Days #40 tablet 03/25/19 Ibuprofen [Motrin] 600 mg PO Q8HR PRN #20 tab 06/25/19 Methocarbamol [Robaxin-750] 750 mg PO TID PRN #30 tablet 06/25/19 Oseltamivir [Tamiflu] 75 mg PO Q12HR 5 Days #10 cap 01/11/20 Allergies Allergy/AdvReac Type Severity Reaction Status Date / Time tramadol Allergy Itching Verified 01/11/20 10:43 Review of Systems ROS Statement: Those systems with pertinent positive or pertinent negative responses have been documented in the HPI. ROS Other: All systems not noted in ROS Statement are negative. Past Medical History Additional Past Medical History / Comment(s): back pain History of Any Multi-Drug Resistant Organisms: None Reported Past Surgical History: Orthopedic Surgery Additional Past Surgical History / Comment(s): BILATERAL KNEE SURGERY Past Psychological History: ADD/ADHD Smoking Status: Current every day smoker Past Alcohol Use History: Rare Past Drug Use History: Marijuana General Exam - General Exam Comments Initial Comments: General: The patient is awake and alert, in no distress, and does not appear acutely ill. Eye: +3 mm pupils are equal, round and reactive to light, extra-ocular movements are intact. No nystagmus. There is normal conjunctiva bilaterally. No signs of icterus. No photophobia Ears, nose, mouth and throat: There are moist mucous membranes and no oral lesions. Oropharynx was not erythematous there is no tonsillar enlargement exudates or lesions. Uvula midline. Tympanic membranes are not erythematous or is no effusions bulging or retraction. No tenderness to palpation of the mastoid. No anterior cervical lymphadenopathy. Rhinorrhea, clear and bilateral nares. No tripoding, no drooling. Neck: The neck is supple, there is no tenderness or JVD. No nuchal rigidity Cardiovascular: There is a regular rate and rhythm. No murmur, rub or gallop is appreciated. Respiratory: Lungs are clear to auscultation, respirations are non-labored, breath sounds are equal. No wheezes, stridor, rales, or rhonchi. No retractions or abdominal breathing. Gastrointestinal: Soft, non-distended, non-tender abdomen without masses or organomegaly noted. There is no rebound or guarding present. Bowel sounds are unremarkable. Musculoskeletal: Normal ROM, no tenderness. Strength 5/5. Sensation intact. Radial pulses equal bilaterally 2+. Neurological: A&O x 3. CN II-XII intact grossly, There are no obvious motor or sensory deficits. Coordination appears grossly intact. Speech appears normal, no muffling. Skin: Skin is warm and dry and no rashes or lesions are noted. No extremity edema Psychiatric: Cooperative Limitations: no limitations Course Vital Signs 01/11/20 10:40 Temperature 98.5 F Pulse Rate 91 Respiratory 16 Rate Blood Pressure 138/83 O2 Sat by Pulse 96 Oximetry Medical Decision Making - Medical Decision Making 29-year-old male presenting today for chief complaint of cough congestion and fever. Ongoing for the past 24-48 hours. Chest x-ray clear lungs clear no signs of difficulty breathing. Influenza A+. Patient is no other complaints he appears well-nourished no signs of nuchal irritation at this time feel he is stable for discharge with strict return parameters primary care follow-up and symptomatic treatment as well as Tamiflu. Patient is agreeable to this care plan and admission. - Lab Data Lab Results 01/11/20 Range/Units 11:00 Influenza Type A RNA Detected H (Not Detectd) Influenza Type B (PCR) Not Detected (Not Detectd) Disposition Clinical Impression: Cough, Fever, Sore throat Disposition: HOME SELF-CARE Condition: Good Instructions (If sedation given, give patient instructions): Influenza (ED) Additional Instructions: Please use medication as discussed. Please follow-up with family doctor in the next 2 days. Please return to emergency room if the symptoms increase or worsen or for any other concerns. Prescriptions: Oseltamivir [Tamiflu] 75 mg PO Q12HR 5 Days #10 cap Is patient prescribed a controlled substance at d/c from ED?: No Referrals: Ajay Duque MD [Primary Care Provider] - 1-2 days Time of Disposition: 11:33
--- NOTE | 2020-01-11 11:30 | XR ---
EXAMINATION TYPE: XR chest 2V DATE OF EXAM ORDERED: 01/11/2020 HISTORY: cough congestion. REFERENCE: Previous study dated 01/02/2018. FINDINGS: The lungs are clear. Pleural spaces are clear. Heart size is normal. IMPRESSION: NORMAL CHEST.
== END 2020-01-11 11:40 | disposition home or self-care (01) ==
LOC: EC 10:38
DX: J02.9 Acute pharyngitis, unspecified (principal); F17.200 Nicotine dependence, unspecified, uncomplicated; Z88.5 Allergy status to narcotic agent
CPT/HCPCS: 71046; 87502; 99283

== ENCOUNTER 2020-03-26 10:56 | Emergency (ER) | payer OTHER ==
[2020-03-26 11:05] VITALS: RESP 18
--- NOTE | 2020-03-26 11:30 | ED ---
Extremity Problem HPI - General Source: patient Mode of arrival: ambulatory Limitations: no limitations <Jodi Adams - Last Filed: 03/26/20 13:16> <Stefanie Dhillon - Last Filed: 03/27/20 02:18> - General Chief complaint: Extremity Problem,Nontraumatic Stated complaint: Swollen finger - History of Present Illness Initial comments: 29-year-old male presenting today for chief complaint of right pink abscess. Patient states he is a abscess to the right pinky patient denies any other lesions he states it is tender to touch. Patient denies any other areas of lesions patient denies any eye redness doesn't chest pain or shortness of breath patient denies IV drug use. Patient denies fevers. Patient states he has noticed it for the past 2 days patient has no additional complaints upon arrival patient appears well no signs of acute distress patient presented because he thought he might need antibiotics. (Jodi Adams) - Related Data Home Medications Medication Instructions Recorded Confirmed Ibuprofen [Motrin] 800 mg PO Q8H PRN 12/28/17 01/14/19 Acetaminophen Tab [Tylenol Tab] 1,000 mg PO Q6HR PRN 01/14/19 01/14/19 Previous Rx's Medication Instructions Recorded Penicillin V Potassium [Pen Vee K] 500 mg PO Q6H 10 Days #40 tablet 03/25/19 Ibuprofen [Motrin] 600 mg PO Q8HR PRN #20 tab 06/25/19 Methocarbamol [Robaxin-750] 750 mg PO TID PRN #30 tablet 06/25/19 Oseltamivir [Tamiflu] 75 mg PO Q12HR 5 Days #10 cap 01/11/20 Cephalexin [Keflex] 500 mg PO Q6HR 7 Days #28 cap 03/26/20 Sulfamethox-Tmp 800-160Mg [Bactrim 1 tab PO Q12HR 7 Days #14 tab 03/26/20 DS 800-160 mg] Allergies Allergy/AdvReac Type Severity Reaction Status Date / Time tramadol Allergy Itching Verified 03/26/20 11:04 Review of Systems ROS Other: All systems not noted in ROS Statement are negative. <Jodi Adams - Last Filed: 03/26/20 13:16> ROS Other: All systems not noted in ROS Statement are negative. <Stefanie Dhillon - Last Filed: 03/27/20 02:18> ROS Statement: Those systems with pertinent positive or pertinent negative responses have been documented in the HPI. Past Medical History Additional Past Medical History / Comment(s): back pain History of Any Multi-Drug Resistant Organisms: None Reported Past Surgical History: Orthopedic Surgery Additional Past Surgical History / Comment(s): BILATERAL KNEE SURGERY Past Psychological History: ADD/ADHD Smoking Status: Current every day smoker Past Alcohol Use History: Rare Past Drug Use History: Marijuana <Jodi Adams - Last Filed: 03/26/20 13:16> General Exam Limitations: no limitations <Jodi Adams - Last Filed: 03/26/20 13:16> - General Exam Comments Initial Comments: General: The patient is awake and alert, in no distress Eye: +3 mm pupils are equal, round and reactive to light, extra-ocular movements are intact. No nystagmus. There is normal conjunctiva bilaterally. No signs of icterus. Ears, nose, mouth and throat: There are moist mucous membranes and no oral lesions. Cardiovascular: There is a regular rate and rhythm. No murmur, rub or gallop is appreciated. Respiratory: Lungs are clear to auscultation, respirations are non-labored, breath sounds are equal. No wheezes, stridor, rales, or rhonchi. Gastrointestinal: Soft, non-distended, non-tender abdomen without masses or organomegaly noted. There is no rebound or guarding present. Musculoskeletal: Normal ROM of the digits of all 5 fingers of right hand, no tenderness. Strength 5/5. Sensation intact. Radial pulses equal bilaterally 2+. Neurological: A&O x 3. CN II-XII intact grossly, There are no obvious motor or sensory deficits. Coordination appears grossly intact. Speech is normal. Skin: Skin is warm and dry and no rashes. 1/2cm by 1/2 cm circular lesion lateral tip of the fifth digit of the right hand. Ulnar aspect-pad of finger. No circumferential swelling or redness of the digit. no limited ROM of digit Psychiatric: Cooperative, appropriate mood & affect, normal judgment. (BryanJodi Rey) Course Vital Signs 03/26/20 03/26/20 11:03 11:58 Temperature 98.2 F 98 F Pulse Rate 95 69 Respiratory 18 18 Rate Blood Pressure 143/92 118/97 O2 Sat by Pulse 99 100 Oximetry Procedures - Incision & Drainage Consent Obtained: verbal consent, written consent Indication: felon Site: other (5th digit right hand) Size (cm): 0 (1/2cm) Anesthetic Used: lidocaine 1% Amount (mLs): 1 I&D Cleaning Method: Iodine Sterile Field Used?: No Scalpel Used: #11 I&D Drainage Obtained: Pus, Blood Culture Obtained?: No Patient Tolerated Procedure: well, no complications <Jodi Adams - Last Filed: 03/26/20 13:16> Medical Decision Making <Jodi Adams - Last Filed: 03/26/20 13:16> <Stefanie Dhillon - Last Filed: 03/27/20 02:18> - Medical Decision Making 29-year-old male presenting today for chief complaint of finger abscess, appears to be very small developing felon. Has had one in the past. Patient has no associated symptoms. With verbal and written consent I&D performed. Patient tolerated procedure well. Patient will be discharged with oral antibiotics, return parameters. There was no signs of flexor tenosynovitis. Patient does not appears toxic. Patient case discussed wtih Dr. Dhillon who is agreeable to care plan and discharge. (Jodi Adams) I was available for consultation in the emergency department. The history and physical exam were done by the midlevel provider. I was consulted for this patients care. I reviewed the case with the midlevel provider and based on their presentation of the patient, I agree with the assessment, medical decision making and plan of care as documented. Chart was dictated using [employer] dictation software. Attempts were made to correct any dictation errors however some typographical errors may persist. Patient was seen during a national state of emergency due to the Covid-19 pandemic. (Stefanie Dhillon) Disposition Is patient prescribed a controlled substance at d/c from ED?: No Time of Disposition: 11:53 <Jodi Adams - Last Filed: 03/26/20 13:16> <Stefanie Dhillon - Last Filed: 03/27/20 02:18> Clinical Impression: Felon Disposition: HOME SELF-CARE Condition: Good Instructions (If sedation given, give patient instructions): Abscess Incision and Drainage (ED), Abscess (ED) Additional Instructions: Please use medication as discussed. Please follow-up with family doctor in the next 2 days. Please return to emergency room if the symptoms increase or worsen or for any other concerns. Prescriptions: Sulfamethox-Tmp 800-160Mg [Bactrim DS 800-160 mg] 1 tab PO Q12HR 7 Days #14 tab Cephalexin [Keflex] 500 mg PO Q6HR 7 Days #28 cap Referrals: Ajay Duque MD [Primary Care Provider] - 1-2 days
[2020-03-26] MEDS ORDERED: LIDOCAINE 1% INJ 10MG/ML (20 ML MDV) SQ ONE (11:34)
[2020-03-26 11:59] VITALS: BP 118/97; PULSE 69; TEMP 98
== END 2020-03-26 11:58 | disposition home or self-care (01) ==
LOC: EC 10:56
DX: L03.011 Cellulitis of right finger (principal); F17.200 Nicotine dependence, unspecified, uncomplicated; Z88.5 Allergy status to narcotic agent
CPT/HCPCS: 99283; 26010; J2001

== ENCOUNTER 2020-06-02 02:01 | Emergency (ER) | payer OTHER ==
[2020-06-02 02:07] VITALS: BP 138/83; PULSE 112; RESP 18; TEMP 98.1
[2020-06-02] MEDS ORDERED: KETOROLAC 30 MG/ML 1 ML VIAL IM STA (02:12)
--- NOTE | 2020-06-02 02:14 | ED ---
Lower Extremity Injury HPI - General Chief Complaint: Extremity Injury, Lower Stated Complaint: LT knee injury Time Seen by Provider: 06/02/20 02:09 Source: patient Mode of arrival: ambulatory Limitations: no limitations - History of Present Illness Initial Comments: 29-year-old male patient presents to the emergency department today for evaluation of left knee pain. Patient states yesterday afternoon he slipped on his deck and fell landing on the knee. Patient states he has been having pain to the left side of the knee radiating down his leg since. States he is having some numb sensation to the lower leg. Does have a history of injury to this knee, has had surgery before. He denies hitting his head or losing consciousness during the fall. Denies any neck or back pain. States he did take Tylenol earlier did not help. Denies any other concerns. Patient denies any headache, chest pain, shortness of breath, dizziness, weakness, abdominal pain, nausea, vomiting, or difficulties with bowel movements or urination. - Related Data Home Medications Medication Instructions Recorded Confirmed Ibuprofen [Motrin] 800 mg PO Q8H PRN 12/28/17 01/14/19 Acetaminophen Tab [Tylenol Tab] 1,000 mg PO Q6HR PRN 01/14/19 01/14/19 Previous Rx's Medication Instructions Recorded Penicillin V Potassium [Pen Vee K] 500 mg PO Q6H 10 Days #40 tablet 03/25/19 Ibuprofen [Motrin] 600 mg PO Q8HR PRN #20 tab 06/25/19 Methocarbamol [Robaxin-750] 750 mg PO TID PRN #30 tablet 06/25/19 Oseltamivir [Tamiflu] 75 mg PO Q12HR 5 Days #10 cap 01/11/20 Cephalexin [Keflex] 500 mg PO Q6HR 7 Days #28 cap 03/26/20 Sulfamethox-Tmp 800-160Mg [Bactrim 1 tab PO Q12HR 7 Days #14 tab 03/26/20 DS 800-160 mg] Naproxen [EC-Naprosyn] 500 mg PO BID PRN #30 tablet. 06/02/20 Allergies Allergy/AdvReac Type Severity Reaction Status Date / Time No Known Allergies Allergy Verified 06/02/20 02:08 Review of Systems ROS Statement: Those systems with pertinent positive or pertinent negative responses have been documented in the HPI. ROS Other: All systems not noted in ROS Statement are negative. Past Medical History Additional Past Medical History / Comment(s): back pain History of Any Multi-Drug Resistant Organisms: None Reported Past Surgical History: Orthopedic Surgery Additional Past Surgical History / Comment(s): BILATERAL KNEE SURGERY Past Psychological History: ADD/ADHD Smoking Status: Current every day smoker Past Alcohol Use History: Rare Past Drug Use History: Marijuana General Exam Limitations: no limitations General appearance: alert, in no apparent distress, other (This is a well- developed, well-nourished adult male patient in no acute distress. Vital signs upon presentation are temperature 98.1F, pulse 112, respirations 18, blood pressure 138/83, pulse ox 99% on room air.) Neck exam: Present: normal inspection, full ROM, other (Nontender, no step-off, no deformity to firm midline palpation of the posterior cervical spine. Full range of motion without pain or limitation.). Absent: tenderness, meningismus, lymphadenopathy Respiratory exam: Present: normal lung sounds bilaterally. Absent: respiratory distress, wheezes, rales, rhonchi, stridor Cardiovascular Exam: Present: regular rate, normal rhythm, normal heart sounds. Absent: systolic murmur, diastolic murmur, rubs, gallop, clicks Extremities exam: Present: full ROM, tenderness (Left anterior knee), normal capillary refill, other (Soft tissue swelling noted over the left anterior knee. Skin to the left leg is pink, warm, dry. Cap refills less than 3 seconds. Pedal posttibial pulses 2+ and equal bilaterally). Absent: normal inspection, pedal edema, joint swelling, calf tenderness Neurological exam: Present: alert, oriented X3, CN II-XII intact Psychiatric exam: Present: normal affect, normal mood Skin exam: Present: warm, dry, intact, normal color. Absent: rash Course Vital Signs 06/02/20 02:04 Temperature 98.1 F Pulse Rate 112 H Respiratory 18 Rate Blood Pressure 138/83 O2 Sat by Pulse 99 Oximetry Medical Decision Making - Medical Decision Making 29-year-old male patient presented to the emergency department today for evaluation of left knee injury. Physical examination did reveal mild soft tiss ue swelling over the anterior aspect of the knee. Mild ecchymosis. Patient is able to ambulate without difficulty. X-ray was obtained and was negative. To be discharged follow-up with his primary care physician for recheck in 1-2 days. He is given prescription for naproxen. He is instructed to rest, ice, elevate the Knee. Return parameters were discussed in detail. He verbalizes henriki ryanne and agrees with this plan. - Radiology Data Radiology results: report reviewed, image reviewed 3 views of left knee are obtained. Report was reviewed in its entirety. Impression by Dr. Mclean shows negative left knee exam. Disposition Clinical Impression: Strain of left knee, Contusion of left knee Disposition: HOME SELF-CARE Condition: Good Instructions (If sedation given, give patient instructions): Knee Sprain (ED), Contusion in Adults (ED) Additional Instructions: Rest, ice, elevate the knee. Use Kofi wrap for comfort and support. Follow-up with your primary care physician for recheck in 1-2 days. Return to the emergency department immediately for any new, worsening, or concerning symptoms. Prescriptions: Naproxen [EC-Naprosyn] 500 mg PO BID PRN #30 tablet.dr GLEASON Reason: Pain Is patient prescribed a controlled substance at d/c from ED?: No Referrals: None,Stated [Primary Care Provider] - 1-2 days Time of Disposition: 02:38
--- NOTE | 2020-06-02 02:31 | XR ---
EXAMINATION TYPE: XR knee complete LT DATE OF EXAM: 06/02/2020 COMPARISON: NONE HISTORY: Fall on the knee. Pain. TECHNIQUE: 3 views FINDINGS: There is no sign of fracture nor dislocation. Joint spaces are normal. There is no sign of joint effusion. IMPRESSION: Negative left knee exam.
== END 2020-06-02 02:55 | disposition home or self-care (01) ==
LOC: EC 02:01
DX: S86.912A Strain of unspecified muscle(s) and tendon(s) at lower leg level, left leg, initial encounter (principal); F17.200 Nicotine dependence, unspecified, uncomplicated; W01.0XXA Fall on same level from slipping, tripping and stumbling without subsequent striking against object, initial encounter
CPT/HCPCS: 73562; 99283; 96372; J1885

== ENCOUNTER 2020-11-01 16:48 | Emergency (ER) | payer OTHER ==
[2020-11-01 16:52] VITALS: BP 137/97; PULSE 74; RESP 18; TEMP 98.8
--- NOTE | 2020-11-01 17:19 | ED ---
General Adult HPI - General Chief complaint: Extremity Injury, Upper Stated complaint: possible thumb infection Time Seen by Provider: 11/01/20 16:54 Source: patient Mode of arrival: ambulatory Limitations: no limitations - History of Present Illness Initial comments: This is a 30-year-old male who presents emergency department for right thumb swelling and pain. The patient states that his symptoms started 2 days ago. The patient states that he noted increased swelling and pain today so decided come emergency department. The patient has had infections of his digits previously. 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 He denies any fevers or chills. No pain proximal to the thumb. No numbness, tingling, or weakness. No other complaints. - Related Data Previous Rx's Medication Instructions Recorded Sulfamethox-Tmp 800-160Mg [Bactrim 1 tab PO Q12HR #14 tab 11/01/20 DS 800-160 mg] Allergies Allergy/AdvReac Type Severity Reaction Status Date / Time No Known Allergies Allergy Verified 11/01/20 18:15 Review of Systems ROS Statement: Those systems with pertinent positive or pertinent negative responses have been documented in the HPI. ROS Other: All systems not noted in ROS Statement are negative. Past Medical History Additional Past Medical History / Comment(s): back pain History of Any Multi-Drug Resistant Organisms: None Reported Past Surgical History: Orthopedic Surgery Additional Past Surgical History / Comment(s): BILATERAL KNEE SURGERY Past Psychological History: ADD/ADHD Smoking Status: Current every day smoker Past Alcohol Use History: None Reported Past Drug Use History: Marijuana General Exam - General Exam Comments Initial Comments: Constitutional: Awake alert Appears comfortable Head: Normocephalic atraumatic Eyes: no conjunctival injection No scleral icterus EOMI Neck: No JVD Supple Heart: Regular rate rhythm normal S1-S2 no murmurs Lungs: Clear to auscultation bilaterally No wheezing No rales Abdomen: Soft nondistended nontender Extremities: Non edematous DP pulses intact Radial pulses intact, there is swelling to the right thumb on the palmar aspect of the distal aspect. There appears to be 2 areas of induration and fluctuance there. Appears to be an abscess formation.. Neuro: A&Ox3 No focal neurologic deficits Psych: Appropriate mood and affect Limitations: no limitations Course Vital Signs 11/01/20 16:50 Temperature 98.8 F Pulse Rate 74 Respiratory 18 Rate Blood Pressure 137/97 O2 Sat by Pulse 97 Oximetry Procedures - Incision & Drainage Consent Obtained: verbal consent Indication: Felon Site: hand Anesthetic Used: lidocaine 1% Amount (mLs): 8 I&D Cleaning Method: Chloroprep Sterile Field Used?: Yes Scalpel Used: #11 Needle Aspiration Performed?: No Irrigation Performed?: No I&D Drainage Obtained: Pus, Blood Culture Obtained?: No Patient Tolerated Procedure: well, no complications Medical Decision Making - Medical Decision Making Is a 30-year-old male who presents emergency department for right thumb pain and swelling. The patient appeared to have a felon on examination. There are 2 areas that appeared to be purulent and close the surface. I did do a slight puncture wound into these areas and did get purulent drainage. I also did a 1 cm incision to the ulnar aspect of the thumb and using hemostat in order to try to break up any loculations. There is no pus that came out of this area. Patient tolerated this well. The wound was dressed with a 4 x 4 gauze and tape there the patient was instructed to keep this area clean and to monitor for increased pain or swelling. He was given hand for follow-up. He was placed on Bactrim 3 times a day. Told to return if he develops any fevers, chills, numbness, Olin, or any other symptoms. All questions were answered. Disposition Clinical Impression: Felon of digit Disposition: HOME SELF-CARE Condition: Stable Instructions (If sedation given, give patient instructions): Abscess (ED) Prescriptions: Sulfamethox-Tmp 800-160Mg [Bactrim DS 800-160 mg] 1 tab PO Q12HR #14 tab Is patient prescribed a controlled substance at d/c from ED?: No Referrals: Bob Carson MD [Primary Care Provider] - 1-2 days Chavez Hussein MD [STAFF PHYSICIAN] - 1-2 days
[2020-11-01] MEDS ORDERED: HYDROcodone/APAP 5-325MG 1 EACH TAB PO STA (18:14)
== END 2020-11-01 18:25 | disposition home or self-care (01) ==
LOC: EC 16:48
DX: L03.011 Cellulitis of right finger (principal); F17.200 Nicotine dependence, unspecified, uncomplicated; Z98.890 Other specified postprocedural states
CPT/HCPCS: 10060; 99283

== ENCOUNTER 2020-11-02 01:13 | Observation (INO) | payer OTHER ==
[2020-11-02] MEDS ORDERED: VANCOMYCIN IV PER PHARMACY 1 EACH MISC MISCELLANE PRN (01:43)
[2020-11-02] MEDS ORDERED: SODIUM CHLORIDE 0.9% 1,000 ML IV ONE (01:43)
[2020-11-02] MEDS ORDERED: SODIUM CHLORIDE 0.9% 500 ML 500 ML IV ONE (01:43)
[2020-11-02] MEDS ORDERED: SULFAMETHOX-TMP 800-160MG 1 EACH TAB PO STA (01:43)
[2020-11-02] MEDS ORDERED: MORPHINE SULFATE 4 MG/ML SYRINGE IVP STA (01:53)
[2020-11-02] MEDS ORDERED: VANCOMYCIN 1,500 MG in SODIUM CHLORIDE 0.9% 250 ML IVPB STA (01:56)
--- NOTE | 2020-11-02 02:15 | XR ---
EXAM: XR Right Fingers, 2 or More Views CLINICAL HISTORY: ITS.REASON XR Reason: thumb abscess TECHNIQUE: Frontal, lateral and oblique views of the fingers of the right hand. COMPARISON: No relevant prior studies available. FINDINGS: Bones/joints: Unremarkable. No acute fracture. No dislocation. Soft tissues: Question trace fluid versus gas seen within the palmar aspect of the distal tuft of the first digit. No radiopaque foreign body. IMPRESSION: Question trace fluid versus gas seen within the palmar aspect of the distal tuft of the first digit.
[2020-11-02 02:25] LABS: Basophils # (A) 0.3 k/uL (0-0.2); Basophils % (A) 2 %; Eosinophils # (A) 0.7 k/uL (0-0.7); Eosinophils % (A) 5 %; HCT 42.9 % (39.0-53.0); HGB 14.9 gm/dL (13.0-17.5); Lymphocytes # (A) 3.4 k/uL (1.0-4.8); Lymphocytes % (A) 23 %; MCH 30.7 pg (25.0-35.0); MCHC 34.8 g/dL (31.0-37.0); MCV 88.4 fL (80.0-100.0); Mean Platelet Volume 6.7; Monocytes % (A) 7 %; Neutrophils # (A) 9.1 k/uL (1.3-7.7); Neutrophils % (A) 62 %; Platelet Count 460 k/uL (150-450); RBC 4.86 m/uL (4.30-5.90); RDW 12.6 % (11.5-15.5); WBC 14.6 k/uL (3.8-10.6)
[2020-11-02] MEDS: SODIUM CHLORIDE 0.9% 1,000 ML IV SCH ×3 (02:27→23:42)
[2020-11-02 02:37] LABS: ALT 27 U/L (4-49); AST 30 U/L (17-59); African American GFR (CKD) >90 (>60 ml/min/1.73 sqM); Albumin 4.1 g/dL (3.5-5.0); Alkaline Phosphatase 102 U/L (38-126); Anion Gap 4 mmol/L; Blood Urea Nitrogen 8 mg/dL (9-20); C Reactive Protein 18.7 mg/L (<10.0); Calcium 9.6 mg/dL (8.4-10.2); Carbon Dioxide 31 mmol/L (22-30); Chloride 101 mmol/L (98-107); Glucose 96 mg/dL (74-99); Non-African American GFR(CKD) >90 (>60 ml/min/1.73 sqM); Sodium 136 mmol/L (137-145); Total Protein 6.8 g/dL (6.3-8.2)
--- NOTE | 2020-11-02 02:38 | ED ---
Upper Extremity HPI - General Source: patient, family Mode of arrival: ambulatory Limitations: no limitations <Jodi Adams - Last Filed: 11/02/20 02:49> <Dale Sandy - Last Filed: 11/02/20 08:39> - General Chief Complaint: Extremity Injury, Upper Stated Complaint: Rt thumb pain - revisit Time Seen by Provider: 11/02/20 01:28 - History of Present Illness Initial Comments: 30yo male presenting for right thumb pain x 3 days. patient states he has had pain for three days and noticed 2 abscesses forming. came to ER today had them drained and discharged with antibiotic, bactrim. he states he did not fill them nor take an antibiotics to his knowledge earlier. states swelling/pain increasing throughout day into the evening-he states he cant sleep secondary to the pain intensity. denies fevers. states hard to move digit secondary to pain.Patient dneies chills, malaise or additional complaints. afebrile on arrival. (Jodi Adams) - Related Data Home Medications Medication Instructions Recorded Confirmed No Known Home Medications 11/02/20 11/02/20 Allergies Allergy/AdvReac Type Severity Reaction Status Date / Time No Known Allergies Allergy Verified 11/02/20 07:44 Review of Systems ROS Other: All systems not noted in ROS Statement are negative. <Jodi Adams - Last Filed: 11/02/20 02:49> ROS Other: All systems not noted in ROS Statement are negative. <Dale Sandy - Last Filed: 11/02/20 08:39> ROS Statement: Those systems with pertinent positive or pertinent negative responses have been documented in the HPI. Past Medical History Additional Past Medical History / Comment(s): back pain History of Any Multi-Drug Resistant Organisms: None Reported Past Surgical History: Orthopedic Surgery Additional Past Surgical History / Comment(s): BILATERAL KNEE SURGERY Past Psychological History: ADD/ADHD Smoking Status: Current every day smoker Past Alcohol Use History: None Reported Past Drug Use History: Marijuana <Jodi Adams - Last Filed: 11/02/20 02:49> General Exam Limitations: no limitations <Jodi Adams - Last Filed: 11/02/20 02:49> - General Exam Comments Initial Comments: General: The patient is awake and alert, appears uncomfortable. Eye: Pupils are equal, round and reactive to light, extra-ocular movements are intact. No nystagmus. There is normal conjunctiva bilaterally. No signs of icterus. Cardiovascular: There is a regular rate and rhythm. No murmur, rub or gallop is appreciated. Respiratory: Lungs are clear to auscultation, respirations are non-labored, breath sounds are equal. No wheezes, stridor, rales, or rhonchi. Musculoskeletal: Fusiform swelling of the right thumb, double in size in comparison with the left thumb. two opening and some swelling noted on the pad of the right thumb. no drainage. no purlence or localized abscess appreicated. Pain along flexor tendon, can range finger slightly at IP joint. signficiant pain limits ROM. Sensation intact. Pulses equal bilaterally 2+. Capillary reill< 3 seconds. Neurological: A&O x 3. CN II-XII intact grossly, There are no obvious motor or sensory deficits. Coordination appears grossly intact. Speech is normal. Skin: Skin is warm and dry and no rashes or lesions are noted. Psychiatric: Cooperative, appropriate mood & affect, normal judgment. (Jodi Adams) Course Vital Signs 11/02/20 11/02/20 11/02/20 01:14 02:33 04:32 Temperature 98 F Pulse Rate 83 79 82 Respiratory 22 18 18 Rate Blood Pressure 137/84 125/83 120/85 O2 Sat by Pulse 100 100 99 Oximetry 11/02/20 05:48 Temperature 97.9 F Pulse Rate 76 Respiratory 18 Rate Blood Pressure 118/93 O2 Sat by Pulse 100 Oximetry Medical Decision Making - Lab Data Result diagrams: 11/02/20 02:07 11/02/20 02:07 <Jodi Adams - Last Filed: 11/02/20 02:49> - Lab Data Result diagrams: 11/02/20 02:07 11/02/20 02:07 <Dale Sandy - Last Filed: 11/02/20 08:39> - Medical Decision Making Leukocytosis. afebrile. notoxic appearing. concern for developing flexor te nosynovitis. patient has area on xr concerning for gas vs felon. attempted drainage earlier today. pateint initiated on vancomycin and zosyn. Morphine for pain control as well as IV fluids. I consulted orthopedic surgery Dr. Hussein who recommended admission, nothing by mouth, broad-spectrum antibiotic and they will consultation in the morning. Emily Sandy agreeable to this care plan. (Jodi Adams) I saw this patient in conjunction with the physician periodicals library assistant. I performed independent history and physical exam. Agree with case management. (Dale Sandy) - Lab Data Lab Results 11/02/20 11/02/20 Range/Units 02:07 02:07 WBC 14.6 H (3.8-10.6) k/uL RBC 4.86 (4.30-5.90) m/uL Hgb 14.9 (13.0-17.5) gm/dL Hct 42.9 (39.0-53.0) % MCV 88.4 (80.0-100.0) fL MCH 30.7 (25.0-35.0) pg MCHC 34.8 (31.0-37.0) g/dL RDW 12.6 (11.5-15.5) % Plt Count 460 H (150-450) k/uL MPV 6.7 Neutrophils % 62 % Lymphocytes % 23 % Monocytes % 7 % Eosinophils % 5 % Basophils % 2 % Neutrophils # 9.1 H (1.3-7.7) k/uL Lymphocytes # 3.4 (1.0-4.8) k/uL Monocytes # 1.0 (0-1.0) k/uL Eosinophils # 0.7 (0-0.7) k/uL Basophils # 0.3 H (0-0.2) k/uL ESR 11 (0-15) mm/hr Sodium 136 L (137-145) mmol/L Potassium 4.0 (3.5-5.1) mmol/L Chloride 101 (98-107) mmol/L Carbon Dioxide 31 H (22-30) mmol/L Anion Gap 4 mmol/L BUN 8 L (9-20) mg/dL Creatinine 0.88 (0.66-1.25) mg/dL Est GFR (CKD-EPI)AfAm >90 (>60 ml/min/1.73 sqM) Est GFR (CKD-EPI)NonAf >90 (>60 ml/min/1.73 sqM) Glucose 96 (74-99) mg/dL Calcium 9.6 (8.4-10.2) mg/dL Total Bilirubin 1.0 (0.2-1.3) mg/dL AST 30 (17-59) U/L ALT 27 (4-49) U/L Alkaline Phosphatase 102 (38-126) U/L C-Reactive Protein 18.7 H (<10.0) mg/L Total Protein 6.8 (6.3-8.2) g/dL Albumin 4.1 (3.5-5.0) g/dL Disposition Is patient prescribed a controlled substance at d/c from ED?: No Time of Disposition: 02:44 Decision to Admit Reason: Admit from EC Decision Date: 11/02/20 Decision Time: 02:44 <Jodi Adams - Last Filed: 11/02/20 02:49> <Dale Sandy - Last Filed: 11/02/20 08:39> Clinical Impression: Swelling of right thumb, Pain of right thumb Disposition: ADMITTED IP TO THIS [facility] Condition: Stable
[2020-11-02] MEDS ORDERED: PIPERACILLIN-TAZOBACTAM 3.375 GM in SODIUM CHLORIDE 0.9% 100 ML IVPB STA (02:41)
[2020-11-02] MEDS ORDERED: NALOXONE 0.4 MG/ML 1 ML VIAL IV PRN (02:42)
[2020-11-02 03:05] LABS: Erythrocyte Sedimentation Rate 11 mm/hr (0-15)
--- NOTE | 2020-11-02 08:19 | P.HPOR ---
History of Present Illness H&P Date: 11/02/20 Chief Complaint: Right thumb infection This is a 22-year-old male with history of right thumb pain and swelling for the past 3 days. He was seen initially 3 days ago and placed on antibiotics. Patient states that he did not feel the antibiotic or take any of the Bactrim prescribed. He returned to the emergency department with increased pain and swelling early this morning. There had been attempt to drain an abscess about the distal finger which he states was unsuccessful. They were unable to get any purulent material out. He is admitted to our service for orthopedic evaluation and IV antibiotic treatment. Past Medical History Additional Past Medical History / Comment(s): back pain History of Any Multi-Drug Resistant Organisms: None Reported Past Surgical History: Orthopedic Surgery Additional Past Surgical History / Comment(s): BILATERAL KNEE SURGERY Past Anesthesia/Blood Transfusion Reactions: No Reported Reaction Past Psychological History: ADD/ADHD Smoking Status: Current every day smoker Past Alcohol Use History: None Reported Past Drug Use History: Marijuana Medications and Allergies Home Medications Medication Instructions Recorded Confirmed Type No Known Home Medications 11/02/20 11/02/20 History Allergies Allergy/AdvReac Type Severity Reaction Status Date / Time No Known Allergies Allergy Verified 11/02/20 07:44 Physical Examination This is a 22-year-old male in no acute distress. He is alert and oriented 3. Exam of the right upper extremity reveals dried blood about the thumb and hand. There is swelling to the thumb and mild erythema which stops at the MCP joint. There is no tenderness along the flexor tendon sheath and the palm of the hand. There is mild tenderness about the palmar aspect of the thumb. There is minimal dorsal tenderness. He has limited range of motion of the IP joint of the thumb. He has satisfactory motion at the MCP joint. There is no erythema up into the forearm. He has full wrist, elbow motion without difficulty or pain. Neurovascular status to the upper extremity is intact. Results X-rays of the right thumb reveal no bony abnormality or fracture. The soft tissue appears edematous on x-ray. - Labs Labs: Abnormal Lab Results - Last 24 Hours (Table) 11/02/20 11/02/20 Range/Units 02:07 02:07 WBC 14.6 H (3.8-10.6) k/uL Plt Count 460 H (150-450) k/uL Neutrophils # 9.1 H (1.3-7.7) k/uL Basophils # 0.3 H (0-0.2) k/uL Sodium 136 L (137-145) mmol/L Carbon Dioxide 31 H (22-30) mmol/L BUN 8 L (9-20) mg/dL C-Reactive Protein 18.7 H (<10.0) mg/L H & H 11/02/20 Range/Units 02:07 Hgb 14.9 (13.0-17.5) gm/dL Hct 42.9 (39.0-53.0) % Result Diagrams: 11/02/20 02:07 11/02/20 02:07 Assessment and Plan (1) Pain of right thumb Current Visit: Yes Status: Acute Code(s): M79.644 - PAIN IN RIGHT FINGER(S) SNOMED Code(s): 653812212 (2) Swelling of right thumb Current Visit: Yes Status: Acute Code(s): M79.89 - OTHER SPECIFIED SOFT TISSUE DISORDERS SNOMED Code(s): 027099415 (3) Felon of digit Current Visit: No Status: Acute Code(s): QHC8703 - SNOMED Code(s): 05053873 Plan: The clinical and x-ray findings are discussed with the patient and nursing staff. Since she has not yet tried a course of antibiotics. I would like him on IV antibiotics for at least 24 hours with warm soaks and K pad to the right hand. I do not see significant evidence of focal abscess formation at this time. We will see how he does over the next 24 hours and reassess. I will consult infectious disease for antibiotic recommendations.
[2020-11-02] MEDS ORDERED: HYDROcodone/APAP 5-325MG 1 EACH TAB PO PRN (08:20)
[2020-11-02] MEDS ORDERED: HYDROmorphone 0.5 MG/0.5 ML SYRINGE IVP PRN (08:21)
[2020-11-02] MEDS: HYDROcodone/APAP 5-325MG 1 EACH TAB PO PRN ×3 (08:59→20:00)
[2020-11-02] MEDS: VANCOMYCIN 1,250 MG in SODIUM CHLORIDE 0.9% 250 ML IVPB SCH ×2 (11:49→20:00)
[2020-11-02] MEDS: NICOTINE 21MG/24HR PATCH TRANSDERM SCH (16:23)
[2020-11-02] MEDS: CLINDAMYCIN 900 MG in DEXTROSE 5% IN WATER 50 ML IVPB SCH ×2 (23:40)
--- NOTE | 2020-11-03 00:07 | CONS ---
CONSULTATION DATE OF SERVICE: 11/02/2020 REASON FOR CONSULTATION: Right thumb abscess and cellulitis. HISTORY OF PRESENT ILLNESS: The patient is a 30-year old male presenting to [facility] early this morning for evaluation of right thumb pain, swelling and redness. The patient's symptoms have been going on for about 3 days. The patient denies any history of any trauma or injecting anything to his thumb area. His thumb becoming swollen, red and painful. The patient describes the pain to be more of a throbbing in nature, intensity almost 7 to 8/10 no radiation. The patient is currently not having open wound or any drainage. The patient on arrival to the ER was afebrile. The patient did have a white count of 14.6. Kidney function was normal and was made for abscess, but nothing came out. The patient subsequently has been started on vancomycin and admitted to the hospital. Infectious Disease was consulted for further management of antibiotic therapy. The patient did have x-rays of the hand which did show question of trace fluid versus cast seen within the palmar aspect of the distant off the 1st digit. REVIEW OF SYSTEMS: Positive points have been mentioned in HPI. Rest of the systems are negative. PAST MEDICAL HISTORY: Past medical history of chronic back pain. PAST SURGICAL HISTORY: Bilateral knee surgery. SOCIAL HISTORY: Current everyday smoker. Does admit to marijuana use. FAMILY HISTORY: No pertinent findings noticed. ALLERGIES: No known drug allergies. MEDICATIONS: Include the patient is currently on [place], Dilaudid, vancomycin. PHYSICAL EXAMINATION: Blood pressure 133/84 with a pulse of 90, temperature 98.1. He is 98% on room air. General description is a middle-aged male up in the room in no distress. No tachypnea or accessory muscle of respiration use. HEENT: Examination shows no pallor or scleral icterus. Oral mucous membrane is dry. No pharyngeal erythema or thrush. NECK trachea central. No thyromegaly. LUNGS unlabored breathing, clear to auscultation anteriorly. HEART: S1, S2. Regular rate and rhythm. ABDOMEN: Soft, no tenderness. Examination of the right hand palm swollen and red. Slight area of induration no fluctuation or drainage was noticed. NEUROLOGICAL: The patient is awake, alert, oriented and affect normal. LABS: Hemoglobin is 14.9, white count 14.7, BUN of 8, creatinine 0.8. CRP was 13.7. X-ray report mentioned above. DIAGNOSTIC IMPRESSION AND PLAN: 1. Patient with right thumb abscess and cellulitis with evidence some gas possible streptococcal cellulitis. Clinically doubt abdominal UTI infection. 2. Patient benefit from ID of thumb tip cultures and debridement. 3. Continue with vancomycin pharmacy to target of 15 however, add clindamycin 900 q.8h. 4. We will follow on his clinical condition and culture to further adjust medication if needed. Thank you for this consultation. Will follow this patient along with you. MMODL / IJN: [id number] /
[2020-11-03] MEDS: VANCOMYCIN 1,250 MG in SODIUM CHLORIDE 0.9% 250 ML IVPB SCH ×3 (03:05→20:40)
[2020-11-03] MEDS: SODIUM CHLORIDE 0.9% 1,000 ML IV SCH ×3 (03:09→17:23)
[2020-11-03] MEDS: HYDROcodone/APAP 5-325MG 1 EACH TAB PO PRN ×4 (06:01→22:19)
[2020-11-03 06:20] LABS: Basophils # (A) 0.1 k/uL (0-0.2); Basophils % (A) 1 %; Eosinophils # (A) 0.8 k/uL (0-0.7); Eosinophils % (A) 10 %; HCT 42.1 % (39.0-53.0); HGB 14.2 gm/dL (13.0-17.5); Lymphocytes # (A) 3.2 k/uL (1.0-4.8); Lymphocytes % (A) 42 %; MCHC 33.7 g/dL (31.0-37.0); MCV 92.1 fL (80.0-100.0); Mean Platelet Volume 6.8; Monocytes # (A) 0.6 k/uL (0-1.0); Monocytes % (A) 8 %; Neutrophils # (A) 2.7 k/uL (1.3-7.7); Neutrophils % (A) 36 %; Platelet Count 337 k/uL (150-450); RBC 4.57 m/uL (4.30-5.90); RDW 12.8 % (11.5-15.5); WBC 7.5 k/uL (3.8-10.6)
[2020-11-03] MEDS ORDERED: LIDOCAINE 2% INJ 20 MG/ML (20 ML MDV) SQ STA (08:21)
[2020-11-03] MEDS: CLINDAMYCIN 900 MG in DEXTROSE 5% IN WATER 50 ML IVPB SCH ×4 (08:37→16:41)
[2020-11-03] MEDS: NICOTINE 21MG/24HR PATCH TRANSDERM SCH (08:37)
--- NOTE | 2020-11-03 09:04 | P.PN ---
Subjective Progress Note Date: 11/03/20 Principal diagnosis: Cellulitis right thumb. Possible felon right thumb. This is a 22-year-old male with history of right thumb pain and swelling for the past 3 days. He was seen initially 3 days ago and placed on antibiotics. Patient states that he did not feel the antibiotic or take any of the Bactrim prescribed. He returned to the emergency department with increased pain and swelling early this morning. There had been attempt to drain an abscess about the distal finger which he states was unsuccessful. They were unable to get any purulent material out. He is admitted to our service for orthopedic evaluation and IV antibiotic treatmen 11/03/2020: The patient has slight improvement in pain and swelling. He does continue to have some swelling to the thumb. He reports no fever or chills. Infectious disease has evaluated the patient. They are requesting culture. White blood cell count is 7.5 today. Objective - Vital Signs Vital signs: Vital Signs Temp 97.7 F 11/03/20 07:47 Pulse 80 11/03/20 07:47 Resp 18 11/03/20 07:47 BP 114/74 11/03/20 07:47 Pulse Ox 100 11/03/20 07:47 Intake & Output 11/02/20 11/03/20 11/03/20 18:59 06:59 18:59 Intake Total 240 1710 Balance 240 1710 Intake: Intake, IV Titration 1590 Amount Clindamycin 900 mg In 50 Dextrose 5% in Water 50 ml @ 50 mls/hr IVPB Q8HR KRISTIN Rx#:[id number] Sodium Chloride 0.9% 1, 1040 000 ml @ 130 mls/hr IV . Q7H42M KRISTIN Rx#:[id number] Vancomycin 1,250 mg In 500 Sodium Chloride 0.9% 250 ml @ 125 mls/hr IVPB Q8H KRISTIN Rx#:[id number] Oral 240 120 Other: Voiding Method Toilet - Exam This is a pleasant 22-year-old male in no acute distress. He is alert and oriented 3. Exam of the right upper extremity reveals that his erythema is improved to the thumb. He continues to have some swelling. There is no active drainage from the small incision made by the ER. He has limited range of motion of the IP joint. Neurovascular status the upper extremities intact. - Labs CBC & Chem 7: 11/03/20 05:37 11/02/20 02:07 Labs: Abnormal Lab Results - Last 24 Hours (Table) 11/03/20 Range/Units 05:37 Eosinophils # 0.8 H (0-0.7) k/uL Assessment and Plan (1) Pain of right thumb Current Visit: Yes Status: Acute Code(s): M79.644 - PAIN IN RIGHT FINGER(S) SNOMED Code(s): 761196294 (2) Swelling of right thumb Current Visit: Yes Status: Acute Code(s): M79.89 - OTHER SPECIFIED SOFT TISSUE DISORDERS SNOMED Code(s): 914038241 (3) Felon of digit Current Visit: No Status: Acute Code(s): NKA0003 - SNOMED Code(s): 93013748 Plan: The clinical findings are discussed with the patient. I discussed bedside incision and drainage along with cultures today. Procedure: The right thumb is anesthetized with a digital block using proximally 16 mL of 2% lidocaine. The small incision on the radial aspect of the thumb was expanded with a 15 blade. I then used a hemostat to spread the tissue both deep and superficial. There was no active purulence noted. Aerobic and anaerobic culture was taken from the deep tissue. The patient is placed in Hibiclens and warm water to soak after the incision and drainage. He is to have a clean dry dressing applied and continue moist heat. Continue antibiotics per infectious disease. We will continue to follow and await culture results.
[2020-11-03] MEDS ORDERED: VANCOMYCIN TROUGH DUE 1 EACH MISC MISCELLANE ONE (10:00)
[2020-11-03 10:16] LABS: African American GFR (CKD) 134.2 (60.0-200.0); Anion Gap 10.3 mmol/L (4.00-12.00); BUN/Creat Ratio 6.67 Ratio (12.00-20.00); C Reactive Protein 2.4 mg/dL (0.0-0.8); Calcium 9.1 mg/dL (8.7-10.3); Carbon Dioxide 27.7 mmol/L (21.6-31.8); Non-African American GFR(CKD) 115.8 (60.0-200.0); Potassium 4.9 mmol/L (3.5-5.5)
--- NOTE | 2020-11-03 23:17 | PN ---
PROGRESS NOTE DATE OF SERVICE: 11/03/2020 REASON FOR FOLLOWUP: Right thumb abscess and cellulitis. INTERVAL HISTORY: The patient is currently afebrile. Apparently the patient did have attempted I&D of the right thumb abscess at the bedside. No significant purulent drainage was noticed. The culture has been obtained. The patient complaining of significant pain, possible . No chest pain, shortness of breath or cough. No abdominal pain or diarrhea. EXAMINATION: Blood pressure 145/90 with a pulse of 89. Temperature is 97.9. He is 98% on room air. General description: The patient is a middle-aged male up in the bed in no distress. Respiratory system: Unlabored breathing, clear to auscultation anteriorly. Heart S1, S2. Regular rate and rhythm. Abdomen soft, no tenderness. Rectum is currently dressed up. No obvious drainage on the dressing. LABS: Hemoglobin is 14.2, white count 7.5, BUN of 6, creatinine 0.9. DIAGNOSTIC IMPRESSION AND PLAN: Patient with right thumb abscess and cellulitis. This patient currently covered with vancomycin and clindamycin to continue while waiting for the culture to finalize. Continue supportive care. MMODL / IJN: [id number] /
[2020-11-04] MEDS: CLINDAMYCIN 900 MG in DEXTROSE 5% IN WATER 50 ML IVPB SCH ×6 (00:30→07:59)
[2020-11-04] MEDS: SODIUM CHLORIDE 0.9% 1,000 ML IV SCH ×3 (01:48→15:48)
[2020-11-04] MEDS: VANCOMYCIN 1,250 MG in SODIUM CHLORIDE 0.9% 250 ML IVPB SCH ×2 (03:17→11:06)
[2020-11-04] MEDS: NICOTINE 21MG/24HR PATCH TRANSDERM SCH (07:59)
[2020-11-04] MEDS: HYDROcodone/APAP 5-325MG 1 EACH TAB PO PRN (08:45)
--- NOTE | 2020-11-04 09:31 | P.PN ---
Subjective Progress Note Date: 11/04/20 Principal diagnosis: Cellulitis right thumb. Possible felon right thumb. This is a 22-year-old male with history of right thumb pain and swelling for the past 3 days. He was seen initially 3 days ago and placed on antibiotics. Patient states that he did not feel the antibiotic or take any of the Bactrim prescribed. He returned to the emergency department with increased pain and swelling early this morning. There had been attempt to drain an abscess about the distal finger which he states was unsuccessful. They were unable to get any purulent material out. He is admitted to our service for orthopedic evaluation and IV antibiotic treatmen 11/03/2020: The patient has slight improvement in pain and swelling. He does continue to have some swelling to the thumb. He reports no fever or chills. Infectious disease has evaluated the patient. They are requesting culture. White blood cell count is 7.5 today. 11/04/2020: The patient has some improvement in redness and swelling. He continues to have pain. Gram stain taken yesterday showed no organisms. Cultures are pending. Vital signs are stable. Objective - Vital Signs Vital signs: Vital Signs Temp 97.7 F 11/04/20 01:28 Pulse 71 11/04/20 08:00 Resp 16 11/04/20 08:00 BP 127/80 11/04/20 01:28 Pulse Ox 99 11/04/20 01:28 Intake & Output 11/03/20 11/04/20 11/04/20 18:59 06:59 18:59 Intake Total 230 350 Balance 230 350 Intake: Oral 230 350 Other: Voiding Method Toilet Toilet # Voids 2 2 - Exam This is a pleasant 30-year-old male in no acute distress. He is alert and oriented 3. Exam of the right upper extremity reveals that his erythema is improved to the thumb. He continues to have some swelling. There is no active drainage from the incision. He has limited range of motion of the IP joint. Neurovascular status the upper extremities intact. - Labs CBC & Chem 7: 11/03/20 05:37 11/03/20 05:37 Labs: Abnormal Lab Results - Last 24 Hours (Table) 11/03/20 Range/Units 05:37 BUN 6.0 L (9.0-27.0) mg/dL BUN/Creatinine Ratio 6.67 L (12.00-20.00) Ratio C-Reactive Protein 2.4 H (0.0-0.8) mg/dL Microbiology - Last 24 Hours (Table) 11/03/20 09:00 Gram Stain - Preliminary Incision Wound Culture - Preliminary 11/03/20 09:00 Anaerobic Culture - Preliminary Incision Assessment and Plan (1) Pain of right thumb Current Visit: Yes Status: Acute Code(s): M79.644 - PAIN IN RIGHT FINGER(S) SNOMED Code(s): 716628726 (2) Swelling of right thumb Current Visit: Yes Status: Acute Code(s): M79.89 - OTHER SPECIFIED SOFT TISSUE DISORDERS SNOMED Code(s): 430784696 (3) Felon of digit Current Visit: No Status: Acute Code(s): FMA6592 - SNOMED Code(s): 32595209 Plan: The clinical findings are discussed with the patient. Continue twice a day soaks with warm water and Hibiclens. Continue antibiotics per infectious disease. We will continue to follow and await culture results. He may be discharged to home when cleared with infectious and antibiotics arranged.
[2020-11-04 15:02] VITALS: BP 129/83; PULSE 83; RESP 18; TEMP 98.2
--- NOTE | 2020-11-04 15:33 | PN ---
PROGRESS NOTE DATE OF SERVICE: 11/04/2020 REASON FOR FOLLOWUP: Right thumb abscess, cellulitis. INTERVAL HISTORY: The patient is currently afebrile. The patient's overall pain and swelling to the right thumb has improved. The patient denies having any chest pain or shortness of breath or cough. No abdominal pain or diarrhea. PHYSICAL EXAMINATION: Blood pressure 119/75, pulse of 70, temperature 98.1. He is 90% on room air. General description is a young male lying in bed in no distress. RESPIRATORY SYSTEM: Unlabored breathing. Clear to auscultation anteriorly. HEART: S1, S2. Regular rate and rhythm. ABDOMEN: Soft. No tenderness. Right thumb swelling has much improved; no drainage. LABS: Vancomycin trough is 13.5. Wound culture so far negative. DIAGNOSTIC IMPRESSION AND PLAN: Patient with right thumb abscess and cellulitis with attempted drainage. No significant purulent drainage came out and culture has been negative. Will send a prescription for oral Keflex and Bactrim DS for 10 days and close outpatient followup. MMODL / IJN: [id number] /
--- NOTE | 2020-11-04 16:04 | P.DS ---
Providers Date of admission: 11/02/20 02:57 Expected date of discharge: 11/04/20 Attending physician: Chavez Hussein Consults: 11/02/20 08:09 Consult Physician Urgent Consulting Provider: Marquise Obrien Consult Reason/Comments: Abx recommendations Do you want consulting provider notified?: Yes Primary care physician: Bob Carson MD - Discharge Diagnosis(es) (1) Pain of right thumb Current Visit: Yes Status: Acute (2) Swelling of right thumb Current Visit: Yes Status: Acute (3) Felon of digit Current Visit: No Status: Acute Hospital Course: This is a 30-year-old male with history of right thumb pain and swelling for the past 3 days. He was seen initially 3 days Prior to admission and placed on antibiotics. Patient states that he did not fill the antibiotic or take any of the Bactrim prescribed. He returned to the emergency department with increased pain and swelling. There had been attempt to drain an abscess about the distal finger which he states was unsuccessful. They were unable to get any purulent material out. He is admitted to our service for orthopedic evaluation and IV antibiotic treatment. Bedside I&D was performed on 11/03/2020 to the right thumb.There was no purulent material obtained. He is doing well with improvement in redness and swelling. He may be discharged to home if cleared by infectious disease. Follow up in our office 7-10 days. Past Medical HistoryT Patient Condition at Discharge: Stable Plan - Discharge Summary Discharge Rx Participant: Yes New Discharge Prescriptions: New Sulfamethox-Tmp 800-160Mg [Bactrim DS 800-160 mg] 1 tab PO Q12HR #20 tab Cephalexin [Keflex] 500 mg PO Q6HR 10 Days #40 cap HYDROcodone/APAP 5-325MG [[place] 5] 1 each PO Q6HR PRN #30 tab PRN Reason: Pain Discharge Medication List Cephalexin [Keflex] 500 mg PO Q6HR 10 Days #40 cap 11/04/20 [Rx] HYDROcodone/APAP 5-325MG [[place] 5] 1 each PO Q6HR PRN #30 tab 11/04/20 [Rx] Sulfamethox-Tmp 800-160Mg [Bactrim DS 800-160 mg] 1 tab PO Q12HR #20 tab 11/04/20 [Rx] Follow up Appointment(s)/Referral(s): Bob Carson MD [Primary Care Provider] - 1-2 days Chavez Hussein MD [STAFF PHYSICIAN] - 10 Days Discharge Disposition: HOME SELF-CARE
[2020-11-05] MEDS ORDERED: VANCOMYCIN TROUGH DUE 1 EACH MISC MISCELLANE ONE (10:00)
== END 2020-11-04 16:59 | disposition home or self-care (01) ==
LOC: EC 01:13 → 5NMEDONC 02:57
PROVIDERS: ADMIT Orthopaedic Surgery; ATTEND Orthopaedic Surgery
DX: L02.511 Cutaneous abscess of right hand (principal); L03.011 Cellulitis of right finger; M54.9 Dorsalgia, unspecified; Z98.890 Other specified postprocedural states; F17.200 Nicotine dependence, unspecified, uncomplicated
CPT/HCPCS: 96366 ×4; 96367 ×2; 96375 ×2; 96361; 96365; 99284; 36415; 80053; 80048; 85652; 85025 ×2; 80202; 86140 ×2; 87070; 87205; 87075; 73140; G0378 ×3; S4990 ×3; J2001; J2543; J3370 ×3; J2270; J1170

== ENCOUNTER 2020-11-16 07:22 | Emergency (ER) | payer OTHER ==
[2020-11-16 07:40] VITALS: BP 142/101; PULSE 102; RESP 18; TEMP 97.8
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
--- NOTE | 2020-11-16 08:17 | XR ---
EXAMINATION TYPE: XR knee complete LT DATE OF EXAM: 11/16/2020 CLINICAL HISTORY: Pain after injury. TECHNIQUE: Three views of the left knee are obtained. COMPARISON: Left knee x-ray June 02, 2020. FINDINGS: There is no acute fracture/dislocation evident in last knee. The tri-compartment joint sp aces appear within normal limits. The overlying soft tissue appears unremarkable. IMPRESSION: There is no acute fracture or dislocation in the left knee. No significant change from p rior.
[2020-11-16] MEDS ORDERED: ACET/COD 300 MG/30 MG STARTER PACK 6 TAB BTL PO STA (08:19)
--- NOTE | 2020-11-17 10:33 | CDI ---
Dear Jodi Adams, Please do addendum to ED report, discrepancy in laterality right knee (hpi) vs left knee (impression). Thank you, Amos Smith Bright Cutter If you have any questions, please contact [employer] at [phone] [facility]
== END 2020-11-16 08:37 | disposition home or self-care (01) ==
LOC: EC 07:22
DX: M25.561 Pain in right knee (principal); R22.41 Localized swelling, mass and lump, right lower limb; F17.200 Nicotine dependence, unspecified, uncomplicated; W22.8XXA Striking against or struck by other objects, initial encounter
CPT/HCPCS: 99283

== ENCOUNTER 2021-05-13 12:21 | Emergency (ER) | payer OTHER ==
[2021-05-13] MEDS ORDERED: MORPHINE SULFATE 4 MG/ML SYRINGE IM STA (12:45)
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
[2021-05-13 15:21] VITALS: BP 129/78; PULSE 82; RESP 18; TEMP 98.7
== END 2021-05-13 15:21 | disposition home or self-care (01) ==
LOC: EC 12:21
DX: S16.1XXA Strain of muscle, fascia and tendon at neck level, initial encounter (principal); F17.200 Nicotine dependence, unspecified, uncomplicated; F12.90 Cannabis use, unspecified, uncomplicated; V89.2XXA Person injured in unspecified motor-vehicle accident, traffic, initial encounter; Y92.410 Unspecified street and highway as the place of occurrence of the external cause
CPT/HCPCS: 72125; 70450; 96372; 99283; J2270

== ENCOUNTER 2021-06-04 15:29 | Observation (INO) | payer OTHER ==
[2021-06-04] MEDS ORDERED: SODIUM CHLORIDE 0.9% 2,000 ML IV ONE (16:16)
[2021-06-04] MEDS ORDERED: ONDANSETRON 4 MG/2 ML VIAL IVP STA (16:24)
[2021-06-04] MEDS ORDERED: MORPHINE SULFATE 4 MG/ML SYRINGE IVP STA (16:24)
[2021-06-04] MEDS ORDERED: IBUPROFEN 600 MG TAB PO STA (16:25)
[2021-06-04 16:34] LABS: Appearance,Urine Clear (Clear); Bilirubin,Urine Negative (Negative); Blood,Urine Negative (Negative); Color,Urine Yellow; Glucose,Urine (UA) Negative (Negative); Ketones,Urine Negative (Negative); Leukocyte Esterase,Urine Negative (Negative); Nitrite,Urine Negative (Negative); Protein,Urine Negative (Negative); Urobilinogen,Urine <2.0 mg/dL (<2.0)
[2021-06-04 16:36] LABS: HCT 45.7 % (39.0-53.0); HGB 16.1 gm/dL (13.0-17.5); MCH 31.9 pg (25.0-35.0); MCHC 35.3 g/dL (31.0-37.0); MCV 90.5 fL (80.0-100.0); Mean Platelet Volume 7.7; Platelet Count 304 k/uL (150-450); RBC 5.05 m/uL (4.30-5.90); RDW 11.9 % (11.5-15.5); WBC 14.7 k/uL (3.8-10.6)
[2021-06-04 16:49] LABS: ALT 38 U/L (4-49); AST 55 U/L (17-59); African American GFR (CKD) >90 (>60 ml/min/1.73 sqM); Albumin 4.4 g/dL (3.5-5.0); Alkaline Phosphatase 91 U/L (38-126); Anion Gap 8 mmol/L; Blood Urea Nitrogen 12 mg/dL (9-20); Calcium 9.6 mg/dL (8.4-10.2); Carbon Dioxide 26 mmol/L (22-30); Chloride 103 mmol/L (98-107); Glucose 105 mg/dL (74-99); Lipase 88 U/L (23-300); Non-African American GFR(CKD) >90 (>60 ml/min/1.73 sqM); Potassium 3.7 mmol/L (3.5-5.1); Sodium 137 mmol/L (137-145); Total Bilirubin 1.3 mg/dL (0.2-1.3); Total Protein 6.9 g/dL (6.3-8.2)
[2021-06-04 17:25] LABS: Band Neutrophils % 8 %; Lymphocytes # (M) 0.44 k/uL (1.0-4.8); Neutrophils % (M) 89 %; Nucleated Red Blood Cells 0 /100 WBC (0-0); Total Cells Counted 100
[2021-06-04 17:26] LABS: Toxic Vacuolation Present
--- NOTE | 2021-06-04 17:33 | ED ---
General Adult HPI - General Chief complaint: Nausea/Vomiting/Diarrhea Stated complaint: vomiting, back pain Source: patient, family Mode of arrival: ambulatory Limitations: physical limitation - History of Present Illness Initial comments: 30-year-old previously healthy male presents emergency Department with reported right flank pain and right lower quadrant abdominal pain. States it started around noon today. He has had multiple episodes of nonbilious, nonbloody vomiting. Also reports to one episode of loose watery stool. He has been unable to hold down any food or water. He has had chills but no recorded fever. Patient denies any sick contacts. No exposure Covid. He denies any testicular pain or discharge. No concern for sexual transmitted infections. He did not take any medications at home for his symptoms. No other alleviating, precipitating or modifying factors - Related Data Home Medications Medication Instructions Recorded Confirmed No Known Home Medications 06/04/21 06/04/21 Allergies Allergy/AdvReac Type Severity Reaction Status Date / Time No Known Allergies Allergy Verified 06/04/21 19:21 Review of Systems ROS Statement: Those systems with pertinent positive or pertinent negative responses have been documented in the HPI. ROS Other: All systems not noted in ROS Statement are negative. Past Medical History Additional Past Medical History / Comment(s): back pain History of Any Multi-Drug Resistant Organisms: None Reported Past Surgical History: Orthopedic Surgery Additional Past Surgical History / Comment(s): BILATERAL KNEE SURGERY Past Anesthesia/Blood Transfusion Reactions: No Reported Reaction Past Psychological History: ADD/ADHD Smoking Status: Current every day smoker Past Alcohol Use History: Rare Past Drug Use History: Marijuana - Past Family History Mother Family Medical History: Cancer Additional Family Medical History / Comment(s): Breast CA General Exam Limitations: physical limitation Course Vital Signs 06/04/21 06/04/21 15:48 19:07 Temperature 99.8 F H Pulse Rate 127 H 100 Respiratory 20 16 Rate Blood Pressure 120/79 102/62 O2 Sat by Pulse 98 99 Oximetry Medical Decision Making - Medical Decision Making Upon arrival patient is placed into room 26. A thorough history and physical exam is performed. IV is established and the patient is given a 2 L bolus of normal saline, 4 mg of morphine informal grams of Zofran. Also given 600 mg of Motrin for his fever. Laboratory studies are conducted in the patient for CAT scan. Laboratory studies reveal white count of 14.7. Urine is clean. Covid negative. CT of the abdomen and pelvis demonstrates a negative computed tomography scan of the abdomen and pelvis. Because of the patient's right lower quadrant pain with leukocytosis, low-grade fever I did call discuss case with Dr. Nails. He did agree to admit the patient for IV antibiotics and reevaluation of the morning. I discussed this with the patient he does agree to admission. Patient was transferred to the floor in stable condition - Lab Data Result diagrams: 06/04/21 16:22 06/04/21 16:22 Lab Results 06/04/21 06/04/21 06/04/21 Range/Units 16:22 16:22 16:22 WBC 14.7 H (3.8-10.6) k/uL RBC 5.05 (4.30-5.90) m/uL Hgb 16.1 (13.0-17.5) gm/dL Hct 45.7 (39.0-53.0) % MCV 90.5 (80.0-100.0) fL MCH 31.9 (25.0-35.0) pg MCHC 35.3 (31.0-37.0) g/dL RDW 11.9 (11.5-15.5) % Plt Count 304 (150-450) k/uL MPV 7.7 Neutrophils % (Manual) 89 % Band Neuts % (Manual) 8 % Lymphocytes % (Manual) 3 % Neutrophils # (Manual) 14.20 H (1.3-7.7) k/uL Lymphocytes # (Manual) 0.44 L (1.0-4.8) k/uL Nucleated RBCs 0 (0-0) /100 WBC Manual Slide Review Performed Toxic Vacuolation Present RBC Morphology Normal Sodium 137 (137-145) mmol/L Potassium 3.7 (3.5-5.1) mmol/L Chloride 103 (98-107) mmol/L Carbon Dioxide 26 (22-30) mmol/L Anion Gap 8 mmol/L BUN 12 (9-20) mg/dL Creatinine 0.94 (0.66-1.25) mg/dL Est GFR (CKD-EPI)AfAm >90 (>60 ml/min/1.73 sqM) Est GFR (CKD-EPI)NonAf >90 (>60 ml/min/1.73 sqM) Glucose 105 H (74-99) mg/dL Plasma Lactic Acid Jarad (0.7-2.0) mmol/L Calcium 9.6 (8.4-10.2) mg/dL Total Bilirubin 1.3 (0.2-1.3) mg/dL AST 55 (17-59) U/L ALT 38 (4-49) U/L Alkaline Phosphatase 91 (38-126) U/L Total Protein 6.9 (6.3-8.2) g/dL Albumin 4.4 (3.5-5.0) g/dL Lipase 88 (23-300) U/L Urine Color Yellow Urine Appearance Clear (Clear) Urine pH 6.0 (5.0-8.0) Ur Specific [place] 1.010 (1.001-1.035) Urine Protein Negative (Negative) Urine Glucose (UA) Negative (Negative) Urine Ketones Negative (Negative) Urine Blood Negative (Negative) Urine Nitrite Negative (Negative) Urine Bilirubin Negative (Negative) Urine Urobilinogen <2.0 (<2.0) mg/dL Ur Leukocyte Esterase Negative (Negative) Coronavirus (PCR) (Not Detectd) 06/04/21 06/04/21 Range/Units 16:22 16:45 WBC (3.8-10.6) k/uL RBC (4.30-5.90) m/uL Hgb (13.0-17.5) gm/dL Hct (39.0-53.0) % MCV (80.0-100.0) fL MCH (25.0-35.0) pg MCHC (31.0-37.0) g/dL RDW (11.5-15.5) % Plt Count (150-450) k/uL MPV Neutrophils % (Manual) % Band Neuts % (Manual) % Lymphocytes % (Manual) % Neutrophils # (Manual) (1.3-7.7) k/uL Lymphocytes # (Manual) (1.0-4.8) k/uL Nucleated RBCs (0-0) /100 WBC Manual Slide Review Toxic Vacuolation RBC Morphology Sodium (137-145) mmol/L Potassium (3.5-5.1) mmol/L Chloride (98-107) mmol/L Carbon Dioxide (22-30) mmol/L Anion Gap mmol/L BUN (9-20) mg/dL Creatinine (0.66-1.25) mg/dL Est GFR (CKD-EPI)AfAm (>60 ml/min/1.73 sqM) Est GFR (CKD-EPI)NonAf (>60 ml/min/1.73 sqM) Glucose (74-99) mg/dL Plasma Lactic Acid Jarad 1.6 (0.7-2.0) mmol/L Calcium (8.4-10.2) mg/dL Total Bilirubin (0.2-1.3) mg/dL AST (17-59) U/L ALT (4-49) U/L Alkaline Phosphatase (38-126) U/L Total Protein (6.3-8.2) g/dL Albumin (3.5-5.0) g/dL Lipase (23-300) U/L Urine Color Urine Appearance (Clear) Urine pH (5.0-8.0) Ur Specific [place] (1.001-1.035) Urine Protein (Negative) Urine Glucose (UA) (Negative) Urine Ketones (Negative) Urine Blood (Negative) Urine Nitrite (Negative) Urine Bilirubin (Negative) Urine Urobilinogen (<2.0) mg/dL Ur Leukocyte Esterase (Negative) Coronavirus (PCR) Not Detected (Not Detectd) Disposition Clinical Impression: RLQ abdominal pain, Fever, Nausea and vomiting Disposition: ADMITTED IP TO THIS [facility] Condition: Stable Is patient prescribed a controlled substance at d/c from ED?: No Decision to Admit Reason: Admit from EC Decision Date: 06/04/21 Decision Time: 19:54
--- NOTE | 2021-06-04 18:33 | CT ---
EXAMINATION TYPE: CT abdomen pelvis w con DATE OF EXAM: 06/04/2021 COMPARISON: 01/02/2014 HISTORY: Right sided pain with vomiting. CT DLP: 987.7 mGycm Automated exposure control for dose reduction was used. CONTRAST: Performed with IV Contrast, patient injected with 100 mL of Isovue 370. Images obtained from the diaphragm to the floor the pelvis with IV contrast. Heart size is normal. There is no pericardial effusion. There is no pleural effusion. Lung bases are clear. The liver spleen stomach pancreas gallbladder appear normal. The bile ducts are not dilated. There is no adrenal mass. Kidneys show satisfactory contrast opacification. There is no hydronephrosi s. The ureters are not dilated. There is no retroperitoneal adenopathy. There is no inguinal hernia. There is no free fluid in the pelvis. Delayed images show normal renal excretion. Appendix is posterior and appears normal. There is no mesenteric edema. There is no ascites or free a ir. There is no sign of a bowel obstruction. There is no sign of a pelvic mass. Lumbar vertebra have fairly normal alignment. There is posterior disc bulging at L4-5. There is no co mpression fracture. Bony pelvis is intact. The hip joints are intact. There is no hip dysplasia. Ther e is L5 spondylolysis without significant spondylolisthesis. IMPRESSION: Negative CT scan abdomen and pelvis. L5 spondylolysis. No significant change compared to old exam.
[2021-06-04] MEDS ORDERED: NALOXONE 0.4 MG/ML 1 ML VIAL IV PRN (19:55)
[2021-06-04] MEDS ORDERED: PIPERACILLIN-TAZOBACTAM 3.375 GM in SODIUM CHLORIDE 0.9% 100 ML IVPB STA (19:56)
[2021-06-04] MEDS: SODIUM CHLORIDE 0.9% 1,000 ML IV SCH (20:53)
[2021-06-05] MEDS: ONDANSETRON 4 MG/2 ML VIAL IVP PRN ×3 (00:53→19:29)
[2021-06-05] MEDS: MORPHINE SULFATE 4 MG/ML SYRINGE IV PRN ×3 (00:56→16:01)
[2021-06-05] MEDS: PIPERACILLIN-TAZOBACTAM 3.375 GM in SODIUM CHLORIDE 0.9% 100 ML IVPB SCH ×3 (04:04→20:06)
[2021-06-05] MEDS: SODIUM CHLORIDE 0.9% 1,000 ML IV SCH ×3 (04:05→20:06)
[2021-06-05 08:49] LABS: HCT 42.7 % (39.6-50.0); HGB 14.9 g/dL (13.0-17.0); MCH 31.2 pg (27.0-32.0); MCHC 34.9 g/dL (32.0-37.0); MCV 89.5 fL (80.0-97.0); Mean Platelet Volume 10.5 fL (9.5-12.2); Platelet Count 280 X 10*3/uL (140-440); RBC 4.77 X 10*6/uL (4.40-5.60); WBC 22.63 X 10*3/uL (4.50-10.00)
[2021-06-05 09:11] LABS: African American GFR (CKD) 118.2 (60.0-200.0); Anion Gap 9.1 mmol/L (4.00-12.00); Calcium 8.4 mg/dL (8.7-10.3); Carbon Dioxide 27.9 mmol/L (21.6-31.8); Potassium 3.9 mmol/L (3.5-5.5)
[2021-06-05] MEDS: HYDROmorphone 1 MG/ML 1 ML SYRINGE IVP PRN (09:19)
[2021-06-05 10:13] LABS: Basophils # (A) 0.05 X 10*3/uL (0.00-0.10); Basophils % (A) 0.2 %; Eosinophils # (A) 0.03 X 10*3/uL (0.04-0.35); Eosinophils % (A) 0.1 %; Lymphocytes # (A) 0.44 X 10*3/uL (0.90-5.00); Lymphocytes % (A) 1.9 %; Monocytes # (A) 0.54 X 10*3/uL (0.20-1.00); Monocytes % (A) 2.4 %; Neutrophils # (A) 21.39 X 10*3/uL (1.80-7.70); Neutrophils % (A) 94.6 %
[2021-06-05] MEDS: NICOTINE 21MG/24HR PATCH TRANSDERM SCH (11:58)
--- NOTE | 2021-06-05 12:09 | P.GSHP ---
History of Present Illness H&P Date: 06/05/21 Chief Complaint: Right lower quadrant pain This 22-year-old male was admitted to the hospital with right lower quadrant pain. Patient states he went out for breakfast and felt sick with nausea vomiting and diarrhea. Patient is to the right upper quadrant pain. His CAT scan of the abdomen however shows a normal appendix. Patient states his pain is slightly better today. Tolerate clear liquids Past Medical History Past Medical History: No Reported History Additional Past Medical History / Comment(s): back pain History of Any Multi-Drug Resistant Organisms: None Reported Past Surgical History: Orthopedic Surgery Additional Past Surgical History / Comment(s): BILATERAL KNEE SURGERY Past Anesthesia/Blood Transfusion Reactions: No Reported Reaction Past Psychological History: ADD/ADHD Smoking Status: Current every day smoker Past Alcohol Use History: Rare Past Drug Use History: Marijuana - Past Family History Mother Family Medical History: Cancer Additional Family Medical History / Comment(s): Breast CA Medications and Allergies Home Medications Medication Instructions Recorded Confirmed Type No Known Home Medications 06/04/21 06/04/21 History Allergies Allergy/AdvReac Type Severity Reaction Status Date / Time No Known Allergies Allergy Verified 06/04/21 19:21 Surgical - Exam Vital Signs Temp Pulse Resp BP Pulse Ox 99.8 F H 127 H 20 120/79 98 06/04/21 15:48 06/04/21 15:48 06/04/21 15:48 06/04/21 15:48 06/04/21 15:48 - General well developed, well nourished, no distress - Eyes PERRL - ENT normal pinna - Neck no masses - Respiratory normal expansion - Cardiovascular Rhythm: regular - Abdomen Mild right lower quadrant pain Abdomen: soft, non tender Results - Labs 06/05/21 05:43 06/05/21 05:43 Abnormal Lab Results - Last 24 Hours (Table) 06/04/21 06/04/21 06/05/21 Range/Units 16:22 16:22 05:43 WBC 14.7 H 22.63 H (3.8-10.6) k/uL Immature Gran # 0.18 H (0.00-0.04) X 10*3/uL Neutrophils # 21.39 H (1.80-7.70) X 10*3/uL Neutrophils # (Manual) 14.20 H (1.3-7.7) k/uL Lymphocytes # 0.44 L (0.90-5.00) X 10*3/uL Lymphocytes # (Manual) 0.44 L (1.0-4.8) k/uL Eosinophils # 0.03 L (0.04-0.35) X 10*3/uL Glucose 105 H (74-99) mg/dL Calcium (8.7-10.3) mg/dL 06/05/21 Range/Units 05:43 WBC (3.8-10.6) k/uL Immature Gran # (0.00-0.04) X 10*3/uL Neutrophils # (1.80-7.70) X 10*3/uL Neutrophils # (Manual) (1.3-7.7) k/uL Lymphocytes # (0.90-5.00) X 10*3/uL Lymphocytes # (Manual) (1.0-4.8) k/uL Eosinophils # (0.04-0.35) X 10*3/uL Glucose (74-99) mg/dL Calcium 8.4 L (8.7-10.3) mg/dL Diabetes panel 06/04/21 06/05/21 Range/Units 16:22 05:43 Sodium 137 138 (137-145) mmol/L Potassium 3.7 3.9 (3.5-5.1) mmol/L Chloride 103 101 (98-107) mmol/L Carbon Dioxide 26 27.9 (22-30) mmol/L BUN 12 14.0 (9-20) mg/dL Creatinine 0.94 1.0 (0.66-1.25) mg/dL Glucose 105 H 94 (74-99) mg/dL Calcium 9.6 8.4 L (8.4-10.2) mg/dL AST 55 (17-59) U/L ALT 38 (4-49) U/L Alkaline Phosphatase 91 (38-126) U/L Total Protein 6.9 (6.3-8.2) g/dL Albumin 4.4 (3.5-5.0) g/dL Calcium panel 06/04/21 06/05/21 Range/Units 16:22 05:43 Calcium 9.6 8.4 L (8.4-10.2) mg/dL Albumin 4.4 (3.5-5.0) g/dL Pituitary panel 06/04/21 06/05/21 Range/Units 16:22 05:43 Sodium 137 138 (137-145) mmol/L Potassium 3.7 3.9 (3.5-5.1) mmol/L Chloride 103 101 (98-107) mmol/L Carbon Dioxide 26 27.9 (22-30) mmol/L BUN 12 14.0 (9-20) mg/dL Creatinine 0.94 1.0 (0.66-1.25) mg/dL Glucose 105 H 94 (74-99) mg/dL Calcium 9.6 8.4 L (8.4-10.2) mg/dL Adrenal panel 06/04/21 06/05/21 Range/Units 16:22 05:43 Sodium 137 138 (137-145) mmol/L Potassium 3.7 3.9 (3.5-5.1) mmol/L Chloride 103 101 (98-107) mmol/L Carbon Dioxide 26 27.9 (22-30) mmol/L BUN 12 14.0 (9-20) mg/dL Creatinine 0.94 1.0 (0.66-1.25) mg/dL Glucose 105 H 94 (74-99) mg/dL Calcium 9.6 8.4 L (8.4-10.2) mg/dL Total Bilirubin 1.3 (0.2-1.3) mg/dL AST 55 (17-59) U/L ALT 38 (4-49) U/L Alkaline Phosphatase 91 (38-126) U/L Total Protein 6.9 (6.3-8.2) g/dL Albumin 4.4 (3.5-5.0) g/dL Assessment and Plan Assessment: Right lower quadrant pain. Probable gastritis. Patient be observed. Is unlikely is appendicitis. We will watch him. If his condition changes he will undergo diagnostic laparoscopy
[2021-06-05 14:43] VITALS: BMI 23.0
--- NOTE | 2021-06-05 18:04 | P.CONS ---
History of Present Illness - Reason for Consult Leukocytosis - History of Present Illness Patient is a 24-year-old male came in with severe right lower quadrant abdominal pain crampy in nature started yesterday with multiple episodes of nonbilious and nonbloody vomiting along with diarrhea. Patient says he didn't eat outside and he may have had food poisoning. Patient had a CT of the abdomen which did not show any appendicitis patient was admitted to general surgery service. Patient does have leukocytosis of 22,000 because of which I believe patient was started on antibiotics by general surgery patient is presently on Zosyn. Patient doesn't have any cough. Patient's symptoms improved significantly already since yesterday. REVIEW OF SYSTEMS: CONSTITUTIONAL: No fever, no malaise, no fatigue. HEENT: No recent visual problems or hearing problems. Denied any sore throat. CARDIOVASCULAR: No chest pain, orthopnea, PND, no palpitations, no syncope. PULMONARY: No shortness of breath, no cough, no hemoptysis. GASTROINTESTINAL: No diarrhea, no nausea, no vomiting, no abdominal pain. NEUROLOGICAL: No headaches, no weakness, no numbness. HEMATOLOGICAL: Denies any bleeding or petechiae. GENITOURINARY: Denies any burning micturition, frequency, or urgency. MUSCULOSKELETAL/RHEUMATOLOGICAL: Denies any joint pain, swelling, or any muscle pain. ENDOCRINE: Denies any polyuria or polydipsia. The rest of the 14-point review of systems is negative. PHYSICAL EXAMINATION: GENERAL: The patient is alert and oriented x3, not in any acute distress. Well developed, well nourished. HEENT: Pupils are round and equally reacting to light. EOMI. No scleral icterus. No conjunctival pallor. Normocephalic, atraumatic. No pharyngeal erythema. No thyromegaly. CARDIOVASCULAR: S1 and S2 present. No murmurs, rubs, or gallops. PULMONARY: Chest is clear to auscultation, no wheezing or crackles. ABDOMEN: Soft, nontender, nondistended, normoactive bowel sounds. No palpable organomegaly. MUSCULOSKELETAL: No joint swelling or deformity. EXTREMITIES: No cyanosis, clubbing, or pedal edema. NEUROLOGICAL: Gross neurological examination did not reveal any focal deficits. SKIN: No rashes. Assessment and plan 1 abdominal pain nausea vomiting and diarrhea: Appears to be secondary to food p oisoning or viral gastroenteritis causing colitis and enteritis. Patient will be started on Protonix IV fluids. If patient symptoms improved patient probably can be discharged tomorrow without any antibiotics -Leukocytosis reactive secondary to gastroenteritis -Nicotine use: Counseling was provided DVT prophylaxis: Ambulation Past Medical History Past Medical History: No Reported History Additional Past Medical History / Comment(s): back pain History of Any Multi-Drug Resistant Organisms: None Reported Past Surgical History: Orthopedic Surgery Additional Past Surgical History / Comment(s): BILATERAL KNEE SURGERY Past Anesthesia/Blood Transfusion Reactions: No Reported Reaction Past Psychological History: ADD/ADHD Smoking Status: Current every day smoker Past Alcohol Use History: Rare Past Drug Use History: Marijuana - Past Family History Mother Family Medical History: Cancer Additional Family Medical History / Comment(s): Breast CA Medications and Allergies Home Medications Medication Instructions Recorded Confirmed Type No Known Home Medications 06/04/21 06/04/21 History Allergies Allergy/AdvReac Type Severity Reaction Status Date / Time No Known Allergies Allergy Verified 06/04/21 19:21 Physical Exam Vitals: Vital Signs Temp Pulse Pulse Resp BP BP Pulse Ox 06/05/21 15:00 98.2 F 85 17 104/64 98 06/05/21 13:49 87 17 06/05/21 08:00 87 17 06/05/21 07:00 98.2 F 87 17 102/64 100 06/05/21 01:54 98.1 F 91 18 93/53 97 06/04/21 21:00 90 16 06/04/21 20:47 98.9 F 90 16 106/70 97 06/04/21 19:07 100 16 102/62 99 Intake and Output 06/05/21 06/05/21 06/05/21 06:59 14:59 22:59 Intake Total 416 Balance 416 Intake: Oral 416 Other: Voiding Method Toilet # Voids 1 3 Weight 77.111 kg Results CBC & Chem 7: 06/05/21 05:43 06/05/21 05:43 Labs: Abnormal Lab Results - Last 24 Hours (Table) 06/05/21 06/05/21 Range/Units 05:43 05:43 WBC 22.63 H (4.50-10.00) X 10*3/uL Immature Gran # 0.18 H (0.00-0.04) X 10*3/uL Neutrophils # 21.39 H (1.80-7.70) X 10*3/uL Lymphocytes # 0.44 L (0.90-5.00) X 10*3/uL Eosinophils # 0.03 L (0.04-0.35) X 10*3/uL Calcium 8.4 L (8.7-10.3) mg/dL
[2021-06-05] MEDS: PANTOPRAZOLE 40 MG/10 ML VIAL IVP SCH (20:05)
[2021-06-06] MEDS: MORPHINE SULFATE 4 MG/ML SYRINGE IV PRN ×2 (01:27→06:16)
[2021-06-06] MEDS: SODIUM CHLORIDE 0.9% 1,000 ML IV SCH (02:48)
[2021-06-06] MEDS: PIPERACILLIN-TAZOBACTAM 3.375 GM in SODIUM CHLORIDE 0.9% 100 ML IVPB SCH (03:58)
[2021-06-06] MEDS: PANTOPRAZOLE 40 MG/10 ML VIAL IVP SCH (07:47)
[2021-06-06] MEDS: NICOTINE 21MG/24HR PATCH TRANSDERM SCH (07:47)
[2021-06-06 08:40] VITALS: BP 112/70; PULSE 67; RESP 16; TEMP 98.1
[2021-06-06] MEDS: HYDROmorphone 1 MG/ML 1 ML SYRINGE IVP PRN (09:12)
[2021-06-06 10:00] LABS: HCT 41.3 % (39.6-50.0); HGB 14.4 g/dL (13.0-17.0); MCH 31.4 pg (27.0-32.0); MCHC 34.9 g/dL (32.0-37.0); Mean Platelet Volume 10.7 fL (9.5-12.2); Platelet Count 224 X 10*3/uL (140-440); RBC 4.59 X 10*6/uL (4.40-5.60); RDW 11.9 % (11.5-14.5); WBC 8.87 X 10*3/uL (4.50-10.00)
[2021-06-06 10:08] LABS: African American GFR (CKD) 105.3 (60.0-200.0); Anion Gap 2.7 mmol/L (4.00-12.00); BUN/Creat Ratio 9.09 Ratio (12.00-20.00); Calcium 8.5 mg/dL (8.7-10.3); Carbon Dioxide 27.3 mmol/L (21.6-31.8); Non-African American GFR(CKD) 90.9 (60.0-200.0); Potassium 3.8 mmol/L (3.5-5.5)
[2021-06-06] MEDS ORDERED: LORATADINE 10 MG TAB PO PRN (10:39)
[2021-06-06] MEDS ORDERED: traMADol 50 MG TAB PO PRN (10:40)
--- NOTE | 2021-06-06 10:44 | P.DS ---
Providers Date of admission: 06/04/21 19:55 Expected date of discharge: 06/06/21 Attending physician: Arturo Nails Consults: 06/05/21 11:27 Consult Physician Routine Consulting Provider: Marcell Valencia Consult Reason/Comments: medical management Do you want consulting provider notified?: Yes Primary care physician: Stated None Hospital Course: Is a 22-year-old male who was brought in the hospital for abdominal pain nausea vomiting diarrhea. Patient had a CAT scan performed showed no evidence of acute appendicitis. Patient's symptoms resolved over his hospitalization. On the day of discharge she had no abdominal pain. Patient had a mild headache. It was presumed the patient a gastroenteritis from food poisoning. Patient was tolerating diet and was discharged home. Patient Condition at Discharge: Good Plan - Discharge Summary Discharge Rx Participant: Yes New Discharge Prescriptions: No Action No Known Home Medications Discharge Medication List No Known Home Medications 06/04/21 [History] Follow up Appointment(s)/Referral(s): None,Stated [Primary Care Provider] - 1-2 days Arturo Nails MD [STAFF PHYSICIAN] - 1 Week Discharge Disposition: HOME SELF-CARE
--- NOTE | 2021-06-06 11:51 | P.PN ---
Subjective Progress Note Date: 06/06/21 Patient is a 24-year-old male came in with severe right lower quadrant abdominal pain crampy in nature started yesterday with multiple episodes of nonbilious and nonbloody vomiting along with diarrhea. Patient says he didn't eat outside and he may have had food poisoning. Patient had a CT of the abdomen which did not show any appendicitis patient was admitted to general surgery service. Patient does have leukocytosis of 22,000 because of which I believe patient was started on antibiotics by general surgery patient is presently on Zosyn. Patient doesn't have any cough. Patient's symptoms improved significantly already since yesterday. 06/06/2021 Patient seen on follow-up, clinically he is doing well his abdominal pain is improved and he has been started on diet per surgery who is not planning. Tolerating oral intake, no plans for surgical intervention at this time. WBC has normalized, no fevers, hemodynamically stable. He is having some itching likely related to IV morphine use. Denies any nausea vomiting or diarrhea. REVIEW OF SYSTEMS: CARDIOVASCULAR: No chest pain, orthopnea, PND, no palpitations, no syncope. PULMONARY: No shortness of breath, no cough, no hemoptysis. GASTROINTESTINAL: No diarrhea, no nausea, no vomiting, no abdominal pain. GENITOURINARY: Denies any burning micturition, frequency, or urgency. PHYSICAL EXAMINATION: GENERAL: The patient is alert and oriented x3, not in any acute distress. Well developed, well nourished. HEENT: Pupils are round and equally reacting to light. EOMI. No scleral icterus. No conjunctival pallor. Normocephalic, atraumatic. No pharyngeal erythema. No thyromegaly. CARDIOVASCULAR: S1 and S2 present. No murmurs, rubs, or gallops. PULMONARY: Chest is clear to auscultation, no wheezing or crackles. ABDOMEN: Soft, nontender, nondistended, normoactive bowel sounds. No palpable organomegaly. MUSCULOSKELETAL: No joint swelling or deformity. EXTREMITIES: No cyanosis, clubbing, or pedal edema. NEUROLOGICAL: Gross neurological examination did not reveal any focal deficits. SKIN: No rashes. Assessment and plan -abdominal pain nausea vomiting and diarrhea: Appears to be secondary to food poisoning or viral gastroenteritis causing colitis and enteritis. Clinically improving, is tolerating oral intake, no plans for surgery at this time. -Pruritus: Secondary to IV morphine use, we'll discontinue IV analgesics can use [place] as needed for pain and we'll give Claritin for itching. Avoid Benadryl if possible to avoid over sedating -Leukocytosis reactive secondary to gastroenteritis -Nicotine use: Counseling was provided DVT prophylaxis: Ambulation Objective - Vital Signs Vital signs: Vital Signs Temp 98.1 F 06/06/21 07:00 Pulse 67 06/06/21 08:00 Resp 16 06/06/21 08:00 BP 112/70 06/06/21 07:00 Pulse Ox 99 06/06/21 07:00 Intake & Output 06/05/21 06/06/21 06/06/21 18:59 06:59 18:59 Intake Total 416 0 Balance 416 0 Weight 77.111 kg Intake: Oral 416 0 Other: Voiding Method Toilet Toilet Toilet # Voids 3 1 - Labs CBC & Chem 7: 06/06/21 05:40 06/06/21 05:40 Labs: Abnormal Lab Results - Last 24 Hours (Table) 06/06/21 Range/Units 05:40 Anion Gap 2.70 L (4.00-12.00) mmol/L BUN/Creatinine Ratio 9.09 L (12.00-20.00) Ratio Calcium 8.5 L (8.7-10.3) mg/dL
== END 2021-06-06 11:46 | disposition home or self-care (01) ==
LOC: EC 15:29 → 6NMEDSUR 19:55
PROVIDERS: ADMIT Surgery; ATTEND Surgery
DX: R10.31 Right lower quadrant pain (principal); R11.2 Nausea with vomiting, unspecified; T40.2X5A Adverse effect of other opioids, initial encounter; L29.9 Pruritus, unspecified; Z20.822 Contact with and (suspected) exposure to COVID-19; R51.9 Headache, unspecified; F17.200 Nicotine dependence, unspecified, uncomplicated; F90.9 Attention-deficit hyperactivity disorder, unspecified type; Z80.3 Family history of malignant neoplasm of breast
CPT/HCPCS: 99285; 96376 ×2; 96365; 96366 ×2; 96375 ×2; 96361 ×2; 36415; 80053; 80048 ×2; 83605; 83690; 85025 ×2; 85027; 81003; 87635; 74177; G0378 ×3; S4990 ×2; J2543 ×3; J2270 ×3; J2405 ×2; J1170 ×2; C9113 ×2; Q9967

== ENCOUNTER → 2021-10-11 | Outpatient (CLI) | payer OTHER ==
[2021-10-11 20:52] LABS: T4, Free (Free Thyroxine) 1.49 ng/dL (0.800-1.800)
== END | disposition home or self-care (01) ==
LOC: LABWHC1 13:47
PROVIDERS: ATTEND Internal Medicine
DX: N52.9 Male erectile dysfunction, unspecified (principal); R53.83 Other fatigue
CPT/HCPCS: 36415; 82040; 84270; 84403; 84439; 84443; 84481

== ENCOUNTER 2021-12-06 19:03 | Emergency (ER) | payer OTHER ==
[2021-12-06 19:36] VITALS: BP 126/84; RESP 18
[2021-12-06] MEDS ORDERED: LIDOCAINE 1% INJ 10MG/ML (20 ML MDV) SQ ONE (20:08)
[2021-12-06] MEDS ORDERED: BACITRACIN OINT 1 EACH PACKET TOPICAL ONE (20:08)
[2021-12-06] MEDS ORDERED: DIPH,PERTUS(ACELL)TETVAC-LF 0.5 ML VIAL IM ONE (20:08)
--- NOTE | 2021-12-06 21:05 | ED ---
General Adult HPI - General Chief complaint: Wound/Laceration Stated complaint: finger lac Time Seen by Provider: 12/06/21 19:52 Source: patient, RN notes reviewed Mode of arrival: ambulatory Limitations: no limitations - History of Present Illness Initial comments: 31-year-old male presents to the emergency department for evaluation of laceration to the third digit on the left hand. Patient states injury was sustained with a kitchen knife while preparing food. Bleeding was controlled prior to arrival. Patient denies loss of sensation or movement. States he is uncertain of when his last tetanus shot was. States pain level as tolerable. Denies any further injuries. - Related Data Home Medications Medication Instructions Recorded Confirmed Albuterol Sulfate [Proair Hfa] 2 puff INHALATION RT-Q6H PRN 12/06/21 12/06/21 Buprenorphine HCl/Naloxone HCl 1 film SL BID 12/06/21 12/06/21 [Suboxone 8 mg-2 mg Sl Film] Loratadine [Claritin] 10 mg PO DAILY 12/06/21 12/06/21 Montelukast [Singulair] 10 mg PO DAILY 12/06/21 12/06/21 Vilazodone HCl [Viibryd] 20 mg PO DAILY 12/06/21 12/06/21 Allergies Allergy/AdvReac Type Severity Reaction Status Date / Time No Known Allergies Allergy Verified 12/06/21 20:12 Review of Systems ROS Statement: Those systems with pertinent positive or pertinent negative responses have been documented in the HPI. ROS Other: All systems not noted in ROS Statement are negative. Past Medical History Past Medical History: No Reported History Additional Past Medical History / Comment(s): back pain History of Any Multi-Drug Resistant Organisms: None Reported Past Surgical History: Orthopedic Surgery Additional Past Surgical History / Comment(s): BILATERAL KNEE SURGERY Past Anesthesia/Blood Transfusion Reactions: No Reported Reaction Past Psychological History: ADD/ADHD Smoking Status: Current every day smoker Past Alcohol Use History: Rare Past Drug Use History: Marijuana - Past Family History Mother Family Medical History: Cancer Additional Family Medical History / Comment(s): Breast CA General Exam Limitations: no limitations (Developed, well-nourished male in no acute distress. Initial temperature 100.8, pulse 88, respirations 18, blood pressure 126/84, pulse ox 100% on room air) General appearance: alert, in no apparent distress ENT exam: Present: normal exam, normal oropharynx, mucous membranes moist Respiratory exam: Present: normal lung sounds bilaterally. Absent: respiratory distress, wheezes, rales, rhonchi, stridor Cardiovascular Exam: Present: regular rate, normal rhythm, normal heart sounds. Absent: systolic murmur, diastolic murmur, rubs, gallop, clicks Left Hand Wrist exam: Present: normal inspection (With the exception of laceration), full ROM, laceration (1 cm linear laceration to the palmar surface of the proximal phalanx of the third digit on the left hand). Absent: swelling, ecchymosis, deformity, erythema Neuro motor exam: Present: thumb opposition intact, fingers 2-5 abduction intact Neurosensory exam: Present: radial nerve intact, ulnar nerve intact, median nerve intact Vascular: Present: normal capillary refill, radial pulse. Absent: vascular compromise, Pallo Neurological exam: Present: alert, oriented X3, CN II-XII intact Psychiatric exam: Present: normal affect, normal mood Skin exam: Present: warm, dry, normal color. Absent: rash Course Vital Signs 12/06/21 12/06/21 19:34 21:08 Temperature 100.8 F H 99.2 F Pulse Rate 88 89 Respiratory 18 18 Rate Blood Pressure 126/84 O2 Sat by Pulse 100 100 Oximetry Procedures - Laceration Laceration #1 Consent Obtained: verbal consent Indication: laceration Site: hand, other (1 cm linear laceration to the palmar surface of the proximal phalanx of the third digit on the left hand) Description: linear Depth: simple, single layer Anesthetic Used: lidocaine 1% Anesthesia Technique: local infiltration Pre-repair: wound explored, irrigated extensively Size of Sutures: 5-0 Number of Sutures: 2 Technique: simple, interrupted Patient Tolerated Procedure: well, no complications Additional Comments: Bacitracin dressing was applied. Wound care was reviewed with patient. He verbalizes understanding. Medical Decision Making - Medical Decision Making 31-year-old male with no significant past medical history presents to the emergency department for evaluation. Upon exam, patient is well-appearing and in no acute distress. He does have a 1 cm linear laceration to the palmar surface of the proximal phalanx of the third digit on the left hand. Injury was sustained using a kitchen knife while preparing food this evening. No active bleeding at this time. Range of motion and distal sensation are intact. No surrounding erythema. Tetanus shot was administered. X-ray was unremarkable. No evidence for foreign body. Wound was anesthetized, thoroughly irrigated, then well approximated with 2 simple interrupted sutures. Bacitracin dressing applied. Wound care was reviewed with patient. Instructed to have sutures removed in 7-10 days, but to be seen by his PCP for a wound recheck in 1-2 days. Return parameters were discussed in detail. Patient verbalizes understanding and agrees with this plan. This patient's care was discussed with my attending Dr. Sandy. - Radiology Data Radiology results: report reviewed, image reviewed X-ray of the left hand was obtained. Report was reviewed in its entirety. Impression per Dr. Tarango is no evidence for acute osseous pathology. Disposition Clinical Impression: Laceration of finger of left hand Disposition: HOME SELF-CARE Condition: Stable Instructions (If sedation given, give patient instructions): Care For Your Stitches (ED), Laceration (ED) Additional Instructions: For the first 48 hours, keep wound clean, dry, and covered. May cleansed with mild soap and water. Apply bacitracin or triple antibiotic ointment to the wound. Monitor for any signs of infection including redness, fever, or thick yellow drainage from wound. Follow-up with your PCP for a wound recheck in the next 1-2 days. Sutures need to be removed in 7-10 days. You may have this done here, urgent care, or your PCP. Return to the emergency department with any new, worsening, or concerning symptoms. Is patient prescribed a controlled substance at d/c from ED?: No Referrals: Ajay Duque MD [Primary Care Provider] - 1-2 days Time of Disposition: 21:05
--- NOTE | 2021-12-06 21:08 | XR ---
EXAMINATION TYPE: XR hand limited LT DATE OF EXAM: 12/06/2021 8:18 PM INDICATION: Patient age:Male; 31 years old; Reason for study: injury to 3rd digit, left hand; COMPARISON: None TECHNIQUE: 2 views of the left hand were obtained. FINDINGS: Normal alignment of the visualized joints. No acute osseous pathology is identified. No e vidence of soft tissue swelling. IMPRESSION: No evidence for acute osseous pathology.
[2021-12-06 21:10] VITALS: PULSE 89; TEMP 99.2
== END 2021-12-06 21:13 | disposition home or self-care (01) ==
LOC: EC 19:03
DX: S61.412A Laceration without foreign body of left hand, initial encounter (principal); F90.9 Attention-deficit hyperactivity disorder, unspecified type; F17.200 Nicotine dependence, unspecified, uncomplicated; F12.90 Cannabis use, unspecified, uncomplicated; Z72.89 Other problems related to lifestyle; W26.0XXA Contact with knife, initial encounter; Y93.G1 Activity, food preparation and clean up
CPT/HCPCS: 73120; 90715; 99283; 12041; 90471; J2001

== ENCOUNTER 2022-04-04 17:17 | Emergency (ER) | payer OTHER ==
[2022-04-04 17:34] VITALS: RESP 20
[2022-04-04] MEDS ORDERED: ACET/COD 300 MG/30 MG STARTER PACK 6 TAB BTL PO STA (20:18)
--- NOTE | 2022-04-04 20:19 | ED ---
General Adult HPI - General Chief complaint: Recheck/Abnormal Lab/Rx Stated complaint: med refill Time Seen by Provider: 04/04/22 19:27 Source: patient, RN notes reviewed Mode of arrival: ambulatory Limitations: no limitations - History of Present Illness Initial comments: Patient is a pleasant 31-year-old male presenting to the emergency department with concerns regarding withdrawal. Patient last had his Suboxone 2 days ago. Patient was placed on this secondary to history of opioid problems. Patient states he was prescribed 75 for the month and has used them all. Patient does have an appointment on Monday. Patient is experiencing some palpitations. Patient did have some mild abdominal discomfort earlier. Patient did have nausea one point. Patient does feel a little bit anxious. - Related Data Home Medications Medication Instructions Recorded Confirmed Albuterol Sulfate [Proair Hfa] 2 puff INHALATION RT-Q6H PRN 12/06/21 12/06/21 Buprenorphine HCl/Naloxone HCl 1 film SL BID 12/06/21 12/06/21 [Suboxone 8 mg-2 mg Sl Film] Loratadine [Claritin] 10 mg PO DAILY 12/06/21 12/06/21 Montelukast [Singulair] 10 mg PO DAILY 12/06/21 12/06/21 Vilazodone HCl [Viibryd] 20 mg PO DAILY 12/06/21 12/06/21 Allergies Allergy/AdvReac Type Severity Reaction Status Date / Time No Known Allergies Allergy Verified 04/04/22 17:33 Review of Systems ROS Statement: Those systems with pertinent positive or pertinent negative responses have been documented in the HPI. ROS Other: All systems not noted in ROS Statement are negative. Constitutional: Denies: fever Eyes: Denies: eye pain ENT: Denies: ear pain Respiratory: Denies: cough Cardiovascular: Denies: chest pain Endocrine: Denies: fatigue Gastrointestinal: Reports: nausea Genitourinary: Denies: dysuria Musculoskeletal: Denies: back pain Skin: Denies: rash Neurological: Denies: weakness Past Medical History Past Medical History: No Reported History Additional Past Medical History / Comment(s): back pain History of Any Multi-Drug Resistant Organisms: None Reported Past Surgical History: Orthopedic Surgery Additional Past Surgical History / Comment(s): BILATERAL KNEE SURGERY Past Anesthesia/Blood Transfusion Reactions: No Reported Reaction Past Psychological History: ADD/ADHD Smoking Status: Current every day smoker Past Alcohol Use History: None Reported Past Drug Use History: None Reported - Past Family History Mother Family Medical History: Cancer Additional Family Medical History / Comment(s): Breast CA General Exam Limitations: no limitations General appearance: alert, in no apparent distress Head exam: Present: normocephalic Eye exam: Present: normal appearance, PERRL Neck exam: Present: normal inspection Respiratory exam: Present: normal lung sounds bilaterally Cardiovascular Exam: Present: regular rate, normal rhythm GI/Abdominal exam: Present: soft. Absent: tenderness Extremities exam: Present: normal inspection Neurological exam: Present: alert Psychiatric exam: Present: normal affect, normal mood Skin exam: Present: normal color Course Vital Signs 04/04/22 17:30 Temperature 98.6 F Pulse Rate 101 H Respiratory 20 Rate Blood Pressure 127/85 O2 Sat by Pulse 100 Oximetry Medical Decision Making - Medical Decision Making Patient is receptive to Tylenol with codeine starter pack and will follow-up with his doctor as planned on Monday. Disposition Clinical Impression: Opioid withdrawal Disposition: HOME SELF-CARE Condition: Stable Instructions (If sedation given, give patient instructions): Opioid Withdrawal (ED) Additional Instructions: Please follow-up with your doctor Monday as planned. Return for increased heart rate, uncontrolled vomiting, worsening symptoms or other concerns. Is patient prescribed a controlled substance at d/c from ED?: No Referrals: Sharon Don [Primary Care Provider] - 1-2 days Time of Disposition: 20:18
[2022-04-04 21:07] VITALS: BP 128/78; PULSE 92; TEMP 98
== END 2022-04-04 21:06 | disposition home or self-care (01) ==
LOC: EC 17:17
DX: F11.23 Opioid dependence with withdrawal (principal); F17.200 Nicotine dependence, unspecified, uncomplicated
CPT/HCPCS: 99284

== ENCOUNTER 2023-04-06 14:32 | Emergency (ER) | payer OTHER ==
[2023-04-06 15:06] VITALS: RESP 18
[2023-04-06 15:40] LABS: Basophils % (A) 1 %; Eosinophils % (A) 11 %; HCT 47.9 % (39.0-53.0); HGB 16.7 gm/dL (13.0-17.5); Lymphocytes # (A) 2.2 k/uL (1.0-4.8); Lymphocytes % (A) 25 %; MCH 31.5 pg (25.0-35.0); MCHC 34.8 g/dL (31.0-37.0); MCV 90.6 fL (80.0-100.0); Mean Platelet Volume 7.4; Monocytes # (A) 0.7 k/uL (0-1.0); Monocytes % (A) 8 %; Neutrophils # (A) 4.8 k/uL (1.3-7.7); Neutrophils % (A) 53 %; Platelet Count 413 k/uL (150-450); RBC 5.29 m/uL (4.30-5.90); RDW 12.3 % (11.5-15.5); WBC 8.9 k/uL (3.8-10.6)
[2023-04-06 15:49] LABS: Partial Thromboplastin Time 26.5 sec (22.0-30.0); Prothrombin Time 10.6 sec (9.0-12.0)
--- NOTE | 2023-04-06 15:49 | ED ---
Chest Pain HPI - General Chief Complaint: Chest Pain Stated Complaint: chest pain, hypertension Time Seen by Provider: 04/06/23 15:24 Source: patient, RN notes reviewed, old records reviewed Mode of arrival: ambulatory Limitations: no limitations - History of Present Illness Initial Comments: This is a 32-year-old male to the emergency department for evaluation of chest pain today. Tachycardia. 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 essentially with a plan to a list of tasks and he either is able to make the cut did not make he did pass through yesterday's work but became very yesterday called primary care was sent to the emergency department MD Complaint: chest pain, other (Tachycardia) Onset: during exertion Pain Location: left chest Pain Radiation: none Severity: moderate Severity scale (1-10): 5 Quality: sharp Consistency: intermittent Improves With: nothing Worsens With: exertion Anginal Symptoms: dyspnea Other Symptoms: palpitations Treatments Prior to Arrival: none - Related Data Home Medications Medication Instructions Recorded Confirmed Albuterol Sulfate [Proair Hfa] 2 puff INHALATION RT-Q6H PRN 12/06/21 12/06/21 Buprenorphine HCl/Naloxone HCl 1 film SL BID 12/06/21 12/06/21 [Suboxone 8 mg-2 mg Sl Film] Loratadine [Claritin] 10 mg PO DAILY 12/06/21 12/06/21 Montelukast [Singulair] 10 mg PO DAILY 12/06/21 12/06/21 Vilazodone HCl [Viibryd] 20 mg PO DAILY 12/06/21 12/06/21 Allergies Allergy/AdvReac Type Severity Reaction Status Date / Time No Known Allergies Allergy Verified 04/11/23 04:19 Review of Systems ROS Statement: Those systems with pertinent positive or pertinent negative responses have been documented in the HPI. ROS Other: All systems not noted in ROS Statement are negative. Past Medical History Past Medical History: No Reported History Additional Past Medical History / Comment(s): back pain History of Any Multi-Drug Resistant Organisms: None Reported Past Surgical History: Orthopedic Surgery Additional Past Surgical History / Comment(s): BILATERAL KNEE SURGERY Past Anesthesia/Blood Transfusion Reactions: No Reported Reaction Past Psychological History: ADD/ADHD Smoking Status: Vaper Past Alcohol Use History: None Reported Past Drug Use History: Marijuana - Past Family History Mother Family Medical History: Cancer Additional Family Medical History / Comment(s): Breast CA General Exam Limitations: no limitations General appearance: alert, in no apparent distress, anxious Head exam: Present: atraumatic, normocephalic, normal inspection Eye exam: Present: normal appearance, PERRL, EOMI. Absent: scleral icterus, conjunctival injection, periorbital swelling ENT exam: Present: normal exam, mucous membranes dry Neck exam: Present: normal inspection. Absent: tenderness, meningismus, lymphadenopathy Respiratory exam: Present: normal lung sounds bilaterally. Absent: respiratory distress, wheezes, rales, rhonchi, stridor Cardiovascular Exam: Present: regular rate, normal rhythm, normal heart sounds. Absent: systolic murmur, diastolic murmur, rubs, gallop, clicks GI/Abdominal exam: Present: soft, normal bowel sounds. Absent: distended, tenderness, guarding, rebound, rigid Extremities exam: Present: normal inspection, full ROM, normal capillary refill. Absent: tenderness, pedal edema, joint swelling, calf tenderness Back exam: Present: normal inspection Neurological exam: Present: alert, oriented X3, CN II-XII intact Psychiatric exam: Present: normal affect, normal mood Skin exam: Present: warm, dry, intact, normal color. Absent: rash Course Vital Signs 04/06/23 04/06/23 04/06/23 15:03 16:20 16:52 Temperature 98.9 F 98 F Pulse Rate 86 74 Pulse Rate [ 80 Sitting Radial] Respiratory 18 18 Rate Blood Pressure 122/80 102/74 O2 Sat by Pulse 97 98 Oximetry - Reevaluation(s) Reevaluation #1: 04/06/23 21:36 Medical records reviewed Reevaluation #2: 04/06/23 21:36 No change in symptoms. Patient remains asymptomatic and no current episodes of tachycardia of Reevaluation #3: 04/06/23 21:37 Patient informed results questions answered Reevaluation #4: 04/06/23 21:37 Was pt. sent in by a medical professional or institution? @ -no Did you speak to anyone other than the patient for history? @ -no Did you review nursing and triage notes? @ -agree Were old charts reviewed? @ -no Differential Diagnosis? @ -prior EKG interpreted by me (3pts min.)? @ -yes X-rays interpreted by me (1pt min.)? @ -yes CT interpreted by me (1pt min.)? @ -no U/S interpreted by me (1pt. min.)? @ -no What testing was considered but not performed? (CT, X-rays, U/S, labs)? Why? @ -no What meds were considered but not given? Why? @ -no Did you discuss the management of the patient with other professionals? @ -no Did you reconcile home meds? @ -no Was smoking cessation discussed for >3mins.? @ -no Was critical care preformed (if so, how long)? @ -no Were there social determinants of health that impacted care today? How? (Homelessness, low income, unemployed, alcoholism, drug addiction, transportation, low edu. Level, literacy, decrease access to med. care, fdc, rehab)? @ -no Was there de-escalation of care discussed even if they declined? (Discuss DNR or withdrawal of care, Hospice)? @ -no What co-morbidities impacted this encounter? (DM, HTN, Smoking, COPD, CAD, Cancer, CVA, Hep., AIDS, mental health diagnosis, sleep apnea, morbid obesity)? @ -none Was patient admitted / discharged? @ -32 male to the emergency department for evaluation of tachycardia yesterday elevated heart rate yesterday secondary severe anxiousness at work to make her break shift. Patient's could've also Marilee if he was unable to perform. Patient's heart was elevated throughout the day he states he did not drink as much water as he normally does currently feels improved has no current chest pain Discharged Undiagnosed new problem with uncertain prognosis? @ -no Drug Therapy requiring intensive monitoring for toxicity (Heparin, Nitro, Insulin, Cardizem)? @ -no Were any procedures done? @ -no Diagnosis/symptom? @ -Chest pain, tachycardia, anxiety Acute, or Chronic, or Acute on Chronic? @ -no Uncomplicated (without systemic symptoms) or Complicated (systemic symptoms)? @ -uncomplicated Side effects of treatment? @ -no Exacerbation, Progression, or Severe Exacerbation] @ -no Poses a threat to life or bodily function? @ -no Chest Pain MDM - MDM 32 male to the emergency department presents today for evaluation of elevated h eart rate, patient's EKG is normal as well as lab values, no findings of the seen here in the ER patient feels well and can be discharged home. Patient does admit to symptoms likely being related to elevated heart rate from anxiety secondary to a make or break shift at work Disposition Clinical Impression: Nausea and vomiting, Atypical chest pain, Chest pain, Tachycardia, Anxiety reaction Disposition: HOME SELF-CARE Condition: Good Instructions (If sedation given, give patient instructions): Tachycardia (ED) Is patient prescribed a controlled substance at d/c from ED?: No Referrals: Sharon Don [Primary Care Provider] - 1-2 days Time of Disposition: 16:40
[2023-04-06 15:52] LABS: ALT 30 U/L (4-49); AST 34 U/L (17-59); African American GFR (CKD) >90 (>60 ml/min/1.73 sqM); Albumin 4.4 g/dL (3.5-5.0); Alkaline Phosphatase 67 U/L (38-126); Anion Gap 10 mmol/L; Blood Urea Nitrogen 10 mg/dL (9-20); Calcium 9.2 mg/dL (8.4-10.2); Carbon Dioxide 24 mmol/L (22-30); Chloride 104 mmol/L (98-107); Glucose 92 mg/dL (74-99); Non-African American GFR(CKD) >90 (>60 ml/min/1.73 sqM); Potassium 4.2 mmol/L (3.5-5.1); Sodium 138 mmol/L (137-145); Total Bilirubin 1.5 mg/dL (0.2-1.3)
--- NOTE | 2023-04-06 16:19 | XR ---
EXAMINATION TYPE: XR chest 2V DATE OF EXAM: 04/06/2023 3:59 PM COMPARISON: Chest radiographs from 01/11/2020 TECHNIQUE: XR chest 2V Frontal and lateral views of the chest. CLINICAL INDICATION:Male, 32 years old with history of Chest Pain; FINDINGS: Lungs/Pleura: There is no evidence of pleural effusion, focal consolidation, or pneumothorax. Pulmonary vascularity: Unremarkable. Heart/mediastinum: Cardiomediastinal silhouette is unremarkable. Musculoskeletal: No acute osseous pathology. IMPRESSION: No acute cardiopulmonary disease/process.
[2023-04-06 16:54] VITALS: BP 102/74; PULSE 74; TEMP 98
== END 2023-04-06 16:53 | disposition home or self-care (01) ==
LOC: EC 14:32
DX: R00.0 Tachycardia, unspecified (principal); R07.89 Other chest pain; R11.2 Nausea with vomiting, unspecified; F41.1 Generalized anxiety disorder; I10 Essential (primary) hypertension; F12.90 Cannabis use, unspecified, uncomplicated; F17.290 Nicotine dependence, other tobacco product, uncomplicated; Z79.899 Other long term (current) drug therapy
CPT/HCPCS: 36415; 71046; 80053; 83735; 84484; 85025; 85610; 85730; 93005; 99285

== ENCOUNTER 2023-04-11 04:17 | Emergency (ER) | payer OTHER ==
[2023-04-11 04:22] VITALS: RESP 18
[2023-04-11] MEDS ORDERED: dexAMETHasone 2 MG TAB PO STA (06:06)
--- NOTE | 2023-04-11 06:12 | ED ---
General Adult HPI - General Chief complaint: ENT Stated complaint: Foreign object stuck in throat Time Seen by Provider: 04/11/23 04:59 Source: patient Mode of arrival: ambulatory Limitations: no limitations - History of Present Illness Initial comments: This is a 32-year-old male with no past medical history presents emergency department for a sore throat. The patient stated over the last 24 hours he had increasing sore throat with mild pain with swallowing. The patient stated that he denied of any chest pain or shortness of breath. The patient denied any recent sick contacts and denied any other pain including any nausea, vomiting, fevers and chills. - Related Data Home Medications Medication Instructions Recorded Confirmed Albuterol Sulfate [Proair Hfa] 2 puff INHALATION RT-Q6H PRN 12/06/21 12/06/21 Buprenorphine HCl/Naloxone HCl 1 film SL BID 12/06/21 12/06/21 [Suboxone 8 mg-2 mg Sl Film] Loratadine [Claritin] 10 mg PO DAILY 12/06/21 12/06/21 Montelukast [Singulair] 10 mg PO DAILY 12/06/21 12/06/21 Vilazodone HCl [Viibryd] 20 mg PO DAILY 12/06/21 12/06/21 Allergies Allergy/AdvReac Type Severity Reaction Status Date / Time No Known Allergies Allergy Verified 04/11/23 04:19 Review of Systems ROS Statement: Those systems with pertinent positive or pertinent negative responses have been documented in the HPI. ROS Other: All systems not noted in ROS Statement are negative. Past Medical History Past Medical History: No Reported History Additional Past Medical History / Comment(s): back pain History of Any Multi-Drug Resistant Organisms: None Reported Past Surgical History: Orthopedic Surgery Additional Past Surgical History / Comment(s): BILATERAL KNEE SURGERY Past Anesthesia/Blood Transfusion Reactions: No Reported Reaction Past Psychological History: ADD/ADHD Smoking Status: Vaper Past Alcohol Use History: None Reported Past Drug Use History: Marijuana - Past Family History Mother Family Medical History: Cancer Additional Family Medical History / Comment(s): Breast CA General Exam Limitations: no limitations General appearance: alert, in no apparent distress Head exam: Present: atraumatic, normocephalic, normal inspection Eye exam: Present: normal appearance, PERRL Pupils: Present: normal accommodation ENT exam: Present: normal exam, other (Minor erythema noted to the posterior pharynx) Neck exam: Present: normal inspection, full ROM Respiratory exam: Present: normal lung sounds bilaterally Cardiovascular Exam: Present: regular rate, normal rhythm, normal heart sounds GI/Abdominal exam: Present: soft, normal bowel sounds Extremities exam: Present: normal inspection, full ROM Back exam: Present: normal inspection, full ROM Neurological exam: Present: alert, oriented X3, CN II-XII intact Psychiatric exam: Present: normal affect, normal mood Skin exam: Present: warm, dry Course Vital Signs 04/11/23 04:19 Temperature 97.5 F L Pulse Rate 72 Respiratory 18 Rate Blood Pressure 117/80 O2 Sat by Pulse 98 Oximetry Medical Decision Making - Medical Decision Making Was pt. sent in by a medical professional or institution (JAM Guerrero, BUSINESS RULES DEVELOPER, urgent care, hospital, or fci...) When possible be specific @ -No Did you speak to anyone other than the patient for history (EMS, parent, family, police, friend...)? What history was obtained from this source @ -No Did you review nursing and triage notes (agree or disagree)? Why? @ -I reviewed and agree with nursing and triage notes Were old charts reviewed (outside hosp., previous admission, EMS record, old EKG, old radiological studies, urgent care reports/EKG's, fci records)? Report findings @ -No old charts were reviewed Differential Diagnosis (chest pain, altered mental status, abdominal pain women, abdominal pain men, vaginal bleeding, weakness, fever, dyspnea, syncope, headache, dizziness, GI bleed, back pain, seizure, CVA, palpatations, mental health)? @ -Strep pharyngitis, upper respiratory infection, viral pharyngitis EKG interpreted by me (3pts min.). @ -None X-rays interpreted by me (1pt min.). @ -None done CT interpreted by me (1pt min.). @ -None done U/S interpreted by me (1pt. min.). @ -None done What testing was considered but not performed or refused? (CT, X-rays, U/S, labs)? Why? @ -None What meds were considered but not given or refused? Why? @ -None Did you discuss the management of the patient with other professionals (professionals i.e. Dr., PA, BUSINESS RULES DEVELOPER, lab, RT, psych nurse, social problems specialist, visual specialist, teacher, chief human resources officer, ed case manager)? Give summary @ -No Was smoking cessation discussed for >3mins.? @ -Yes Was critical care preformed (if so, how long)? @ -No Were there social determinants of health that impacted care today? How? (Homelessness, low income, unemployed, alcoholism, drug addiction, transportation, low edu. Level, literacy, decrease access to med. care, [facility], rehab)? @ -No Was there de-escalation of care discussed even if they declined (Discuss DNR or withdrawal of care, Hospice)? DNR status @ -No What co-morbidities impacted this encounter? (DM, HTN, Smoking, COPD, CAD, Cancer, CVA, ARF, Chemo, Hep., AIDS, mental health diagnosis, sleep apnea, morb id obesity)? @ -None Was patient admitted / discharged? Hospital course, mention meds given and route, prescriptions, significant lab abnormalities, going to OR and other pertinent info. @ -The patient was seen and evaluated emergency department. Physical exam, the patient was resting in bed without any acute distress. Vital signs admission were stable. Rapid strep testing was obtained and was negative. The patient likely had a viral pharyngitis as a cause of his symptoms. The patient was given a dose of Decadron for his discomfort with swallowing and was stable for discharge home. The patient stated that he had a viral pharyngitis and to continue take Motrin and Tylenol for this pain. The patient was advised to follow-up with his family care physician for further workup and evaluation and to report back to the emergency department if he had any worsening pain or symptoms. The patient was agreeable to this and all his questions were answered appropriately. The patient was discharged home in stable condition. Undiagnosed new problem with uncertain prognosis? @ -No Drug Therapy requiring intensive monitoring for toxicity (Heparin, Nitro, Insulin, Cardizem)? @ -No Were any procedures done? @ -No Diagnosis/symptom? @ -Viral pharyngitis Acute, or Chronic, or Acute on Chronic? @ -Acute Uncomplicated (without systemic symptoms) or Complicated (systemic symptoms)? @ -Uncomplicated Side effects of treatment? @ -No Exacerbation, Progression, or Severe Exacerbation? @ -No Poses a threat to life or bodily function? How? (Chest pain, [place], [place], pneumonia, PE, COPD, DKA, ARF, appy, cholecystitis, CVA, Diverticulitis, Homicidal, Suicidal, threat to staff... and all critical care pts) @ -No - Lab Data Lab Results 04/11/23 Range/Units 05:05 Group A Strep (PCR) NOT DETECTED (Not Detectd) Disposition Clinical Impression: Viral pharyngitis Disposition: HOME SELF-CARE Condition: Stable Instructions (If sedation given, give patient instructions): Pharyngitis (ED) Is patient prescribed a controlled substance at d/c from ED?: No Referrals: Sharon Don [Primary Care Provider] - 1-2 days Time of Disposition: 06:00
[2023-04-11 06:19] VITALS: BP 121/80; PULSE 73; TEMP 97.6
== END 2023-04-11 06:28 | disposition home or self-care (01) ==
LOC: EC 04:17
DX: J02.8 Acute pharyngitis due to other specified organisms (principal); B97.89 Other viral agents as the cause of diseases classified elsewhere; F90.9 Attention-deficit hyperactivity disorder, unspecified type; F17.290 Nicotine dependence, other tobacco product, uncomplicated; F12.90 Cannabis use, unspecified, uncomplicated; Z79.899 Other long term (current) drug therapy
CPT/HCPCS: 87651; 99283; J8540

== ENCOUNTER 2023-05-05 17:43 | Emergency (ER) | payer OTHER ==
[2023-05-05 18:01] VITALS: TEMP 98
[2023-05-05] MEDS ORDERED: LIDOCAINE 1% INJ 10MG/ML (30 ML VIAL-PF) SQ ONE (18:11)
[2023-05-05] MEDS ORDERED: DIPH,PERTUS(ACELL)TETVAC-LF 0.5 ML VIAL IM ONE (18:11)
--- NOTE | 2023-05-05 18:17 | ED ---
General Adult HPI - General Chief complaint: Wound/Laceration Stated complaint: L foot-stepped on nail Time Seen by Provider: 05/05/23 18:02 Source: patient, RN notes reviewed Mode of arrival: ambulatory Limitations: no limitations - History of Present Illness Initial comments: 32-year-old male presents emergency department chief complaint of stepping on a nail. He states that this happened about an hour ago. He was out behind a shed when he felt something go through his shoe and into his left big toe. He states he is otherwise healthy and takes no daily medications. Denies medication allergies. He states he does not know the date of his last tetanus shot but had all of his vaccines when he was a child. - Related Data Home Medications Medication Instructions Recorded Confirmed Albuterol Sulfate [Proair Hfa] 2 puff INHALATION RT-Q6H PRN 12/06/21 12/06/21 Buprenorphine HCl/Naloxone HCl 1 film SL BID 12/06/21 12/06/21 [Suboxone 8 mg-2 mg Sl Film] Loratadine [Claritin] 10 mg PO DAILY 12/06/21 12/06/21 Montelukast [Singulair] 10 mg PO DAILY 12/06/21 12/06/21 Vilazodone HCl [Viibryd] 20 mg PO DAILY 12/06/21 12/06/21 Previous Rx's Medication Instructions Recorded Levofloxacin [Levaquin] 500 mg PO DAILY 5 Days #5 tab 05/05/23 Allergies Allergy/AdvReac Type Severity Reaction Status Date / Time No Known Allergies Allergy Verified 05/05/23 18:00 Review of Systems ROS Statement: Those systems with pertinent positive or pertinent negative responses have been documented in the HPI. ROS Other: All systems not noted in ROS Statement are negative. Past Medical History Past Medical History: No Reported History Additional Past Medical History / Comment(s): back pain History of Any Multi-Drug Resistant Organisms: None Reported Past Surgical History: Orthopedic Surgery Additional Past Surgical History / Comment(s): BILATERAL KNEE SURGERY Past Anesthesia/Blood Transfusion Reactions: No Reported Reaction Past Psychological History: ADD/ADHD Smoking Status: Vaper Past Alcohol Use History: None Reported Past Drug Use History: Marijuana - Past Family History Mother Family Medical History: Cancer Additional Family Medical History / Comment(s): Breast CA General Exam Limitations: no limitations General appearance: alert, in no apparent distress Head exam: Present: atraumatic, normocephalic, normal inspection Eye exam: Present: normal appearance, PERRL, EOMI. Absent: scleral icterus, conjunctival injection, periorbital swelling ENT exam: Present: normal exam, mucous membranes moist Neck exam: Present: normal inspection. Absent: tenderness, meningismus, lymphadenopathy Respiratory exam: Present: normal lung sounds bilaterally. Absent: respiratory distress, wheezes, rales, rhonchi, stridor Cardiovascular Exam: Present: regular rate, normal rhythm, normal heart sounds. Absent: systolic murmur, diastolic murmur, rubs, gallop, clicks Extremities exam: Present: tenderness ( left foot first digit), normal capillary refill, other (Puncture Wound of first digit of the left foot, DP and PT pulses 2+) Neurological exam: Present: alert, oriented X3 Psychiatric exam: Present: normal affect, normal mood Skin exam: Present: warm, dry, normal color, other (Puncture wound left foot first digit) Course Vital Signs 05/05/23 05/05/23 17:58 19:23 Temperature 98.0 F 98.0 F Pulse Rate 87 73 Respiratory 20 18 Rate Blood Pressure 117/78 132/89 O2 Sat by Pulse 96 96 Oximetry Medical Decision Making - Medical Decision Making Was pt. sent in by a medical professional or institution (JAM Guerrero, PRECISION INSTRUMENT MAKER, urgent care, hospital, or halfway...) When possible be specific @ -No Did you speak to anyone other than the patient for history (EMS, parent, family, police, friend...)? What history was obtained from this source @ -No Did you review nursing and triage notes (agree or disagree)? Why? @ -I reviewed and agree with nursing and triage notes Were old charts reviewed (outside hosp., previous admission, EMS record, old EKG, old radiological studies, urgent care reports/EKG's, halfway records)? Report findings @ -No old charts were reviewed Differential Diagnosis (chest pain, altered mental status, abdominal pain women, abdominal pain men, vaginal bleeding, weakness, fever, dyspnea, syncope, headache, dizziness, GI bleed, back pain, seizure, CVA, palpatations, mental health, musculoskeletal)? @ -Differential Musculoskeletal Muscular strain, contusion, ligament sprain, fracture, arthritis, septic arthritis, bursitis, cellulitis, muscle spasm, nerve compression, DVT, arterial occlusion, herpes zoster, electrolyte abnormality, tumor.... This is not meant to be in all inclusive list EKG interpreted by me (3pts min.). @ -None X-rays interpreted by me (1pt min.). @ -X-ray showed no obvious foreign body or acute fracture CT interpreted by me (1pt min.). @ -None done U/S interpreted by me (1pt. min.). @ -None done What testing was considered but not performed or refused? (CT, X-rays, U/S, labs)? Why? @ -None What meds were considered but not given or refused? Why? @ -None Did you discuss the management of the patient with other professionals (professionals i.e. , PA, PRECISION INSTRUMENT MAKER, lab, RT, psych nurse, social and human services assistant, automotive finance manager, teacher, ambulance officer, case filler)? Give summary @ -No Was smoking cessation discussed for >3mins.? @ -No Was critical care preformed (if so, how long)? @ -No Were there social determinants of health that impacted care today? How? (Homelessness, low income, unemployed, alcoholism, drug addiction, transportation, low edu. Level, literacy, decrease access to med. care, [facility], rehab)? @ -No Was there de-escalation of care discussed even if they declined (Discuss DNR or withdrawal of care, Hospice)? DNR status @ -No What co-morbidities impacted this encounter? (DM, HTN, Smoking, COPD, CAD, Cancer, CVA, ARF, Chemo, Hep., AIDS, mental health diagnosis, sleep apnea, morbid obesity)? @ -None Was patient admitted / discharged? Hospital course, mention meds given and route, prescriptions, significant lab abnormalities, going to OR and other pertinent info. @ -Discharged. Patient presented to emergency department chief complaint of stepping on a nail. He states that he was behind a shed when he noticed a nail go into his first digit of his left foot through his sandal and sock. Patient's tetanus updated. X-ray obtained which showed no obvious foreign body. Skin over the puncture wound was pulled back and the area was irrigated with saline. patient prescribed levofloxacin to cover for pseudomonas as the nail went through his sandal and sock. Patient advised taking her medicine completion. Patient discharged in stable condition Case discussed with my attending, Dr. Mcnally Undiagnosed new problem with uncertain prognosis? @ -No Drug Therapy requiring intensive monitoring for toxicity (Heparin, Nitro, Insulin, Cardizem)? @ -No Were any procedures done? @ -No Diagnosis/symptom? @ -Puncture wound Acute, or Chronic, or Acute on Chronic? @ -Acute Uncomplicated (without systemic symptoms) or Complicated (systemic symptoms)? @ -Uncomplicated Side effects of treatment? @ -No Exacerbation, Progression, or Severe Exacerbation? @ -No Poses a threat to life or bodily function? How? (Chest pain, [place], [place], pneumonia, PE, COPD, DKA, ARF, appy, cholecystitis, CVA, Diverticulitis, Homicidal, Suicidal, threat to staff... and all critical care pts) @ -No Disposition Clinical Impression: Puncture wound of great toe w/o foreign body w/o damage to nail Disposition: HOME SELF-CARE Condition: Stable Instructions (If sedation given, give patient instructions): Puncture Wound (ED) Additional Instructions: Please keep wound clean and dry. Take antibiotics to completion. Return to the emergency department for new or worsening symptoms. Prescriptions: Levofloxacin [Levaquin] 500 mg PO DAILY 5 Days #5 tab Is patient prescribed a controlled substance at d/c from ED?: No Referrals: Sharon Don [Primary Care Provider] - 1-2 days Time of Disposition: 19:12
--- NOTE | 2023-05-05 19:09 | XR ---
EXAMINATION TYPE: XR toes LT DATE OF EXAM: 05/05/2023 6:32 PM INDICATION: Patient age:Male; 32 years old; Reason for study: stepped on nail, 1st toe; [facility]. COMPARISON: None TECHNIQUE: The left toe was examined in the AP, oblique, and lateral projections. FINDINGS: No evidence of any acute osseous pathology. No evidence of soft tissue swelling. Joints are preserve d. No radiopaque foreign body IMPRESSION: No evidence of acute fracture.
[2023-05-05 19:24] VITALS: BP 132/89; PULSE 73; RESP 18
== END 2023-05-05 19:40 | disposition home or self-care (01) ==
LOC: EC 17:43
DX: S91.13 Puncture wound without foreign body of toe without damage to nail (principal); F17.290 Nicotine dependence, other tobacco product, uncomplicated; F12.90 Cannabis use, unspecified, uncomplicated; Z23 Encounter for immunization; W45.0XXA Nail entering through skin, initial encounter
CPT/HCPCS: 73660; 90715; 99283; 90471; J2001

== ENCOUNTER 2023-06-30 00:51 | Emergency (ER) | payer OTHER ==
[2023-06-30 00:56] VITALS: BP 162/101; PULSE 105; RESP 20; TEMP 98.6
--- NOTE | 2023-06-30 01:07 | ED ---
Wound/Laceration HPI - General Chief Complaint: Wound/Laceration Stated Complaint: Left finger Lac Time Seen by Provider: 06/30/23 00:57 Source: patient Mode of arrival: ambulatory Limitations: no limitations - History of Present Illness Initial Comments: 32-year-old male presenting with chief complaint of laceration to left pointer finger. States that the laceration occurred yesterday. This is an extremely superficial laceration measuring 2 cm. States that he did not come in sooner because "I had things to do". States that has been recurrently opening up and bleeding. - Related Data Home Medications Medication Instructions Recorded Confirmed Albuterol Sulfate [Proair Hfa] 2 puff INHALATION RT-Q6H PRN 12/06/21 12/06/21 Buprenorphine HCl/Naloxone HCl 1 film SL BID 12/06/21 12/06/21 [Suboxone 8 mg-2 mg Sl Film] Loratadine [Claritin] 10 mg PO DAILY 12/06/21 12/06/21 Montelukast [Singulair] 10 mg PO DAILY 12/06/21 12/06/21 Vilazodone HCl [Viibryd] 20 mg PO DAILY 12/06/21 12/06/21 Previous Rx's Medication Instructions Recorded Levofloxacin [Levaquin] 500 mg PO DAILY 5 Days #5 tab 05/05/23 Allergies Allergy/AdvReac Type Severity Reaction Status Date / Time No Known Allergies Allergy Verified 06/30/23 00:56 Review of Systems ROS Statement: Those systems with pertinent positive or pertinent negative responses have been documented in the HPI. ROS Other: All systems not noted in ROS Statement are negative. Past Medical History Past Medical History: No Reported History Additional Past Medical History / Comment(s): back pain History of Any Multi-Drug Resistant Organisms: None Reported Past Surgical History: Orthopedic Surgery Additional Past Surgical History / Comment(s): BILATERAL KNEE SURGERY Past Anesthesia/Blood Transfusion Reactions: No Reported Reaction Past Psychological History: ADD/ADHD Smoking Status: Vaper Past Alcohol Use History: None Reported Past Drug Use History: Marijuana - Past Family History Mother Family Medical History: Cancer Additional Family Medical History / Comment(s): Breast CA General Exam Limitations: no limitations General appearance: alert, in no apparent distress Head exam: Present: atraumatic, normocephalic, normal inspection Eye exam: Present: normal appearance, EOMI Neck exam: Present: normal inspection, full ROM Respiratory exam: Absent: respiratory distress Neurological exam: Present: alert, oriented X3, CN II-XII intact Psychiatric exam: Present: normal affect, normal mood Expanded Type of lesion: Present: laceration (Extremely superficial laceration to the left pointer finger measuring 2 cm) Course Vital Signs 06/30/23 00:54 Temperature 98.6 F Pulse Rate 105 H Respiratory 20 Rate Blood Pressure 162/101 O2 Sat by Pulse 99 Oximetry Medical Decision Making - Medical Decision Making Was pt. sent in by a medical professional or institution (, PA, PALLETISER OPERATOR, urgent care, hospital, or intermediate...) When possible be specific @ -No Did you speak to anyone other than the patient for history (EMS, parent, family, police, friend...)? What history was obtained from this source @ -No Did you review nursing and triage notes (agree or disagree)? Why? @ -I reviewed and agree with nursing and triage notes Were old charts reviewed (outside hosp., previous admission, EMS record, old EKG, old radiological studies, urgent care reports/EKG's, intermediate records)? Report findings @ -No old charts were reviewed Differential Diagnosis (chest pain, altered mental status, abdominal pain women, abdominal pain men, vaginal bleeding, weakness, fever, dyspnea, syncope, headache, dizziness, GI bleed, back pain, seizure, CVA, palpatations, mental health, musculoskeletal)? @ -not applicable EKG interpreted by me (3pts min.). @ -As above X-rays interpreted by me (1pt min.). @ -None done CT interpreted by me (1pt min.). @ -None done U/S interpreted by me (1pt. min.). @ -None done What testing was considered but not performed or refused? (CT, X-rays, U/S, labs)? Why? @ -None What meds were considered but not given or refused? Why? @ -None Did you discuss the management of the patient with other professionals (professionals i.e. JAM Guerrero, PALLETISER OPERATOR, lab, RT, psych nurse, nephrology social worker, micro photographer, teacher, youth officer, caser)? Give summary @ -No Was smoking cessation discussed for >3mins.? @ -No Was critical care preformed (if so, how long)? @ -No Were there social determinants of health that impacted care today? How? (Homelessness, low income, unemployed, alcoholism, drug addiction, transportation, low edu. Level, literacy, decrease access to med. care, [facility], rehab)? @ -No Was there de-escalation of care discussed even if they declined (Discuss DNR or withdrawal of care, Hospice)? DNR status @ -No What co-morbidities impacted this encounter? (DM, HTN, Smoking, COPD, CAD, Cancer, CVA, ARF, Chemo, Hep., AIDS, mental health diagnosis, sleep apnea, morbid obesity)? @ -None Was patient admitted / discharged? Hospital course, mention meds given and route, prescriptions, significant lab abnormalities, going to OR and other pertinent info. @ -32-year-old male presenting with chief complaint of laceration obtained yesterday, greater than 24 hours ago. On physical examination laceration is extremely superficial in nature, no bleeding at this time Steri-Strips are placed and patient was educated on wound care and signs of infection. Follow-up with PCP. Report back to ER with any new or worsening symptoms. Discussed return parameters and answered all questions. Patient conveyed verbal understanding and agreed to the plan. I discussed this case in detail with my attending Dr. John Undiagnosed new problem with uncertain prognosis? @ -No Drug Therapy requiring intensive monitoring for toxicity (Heparin, Nitro, Insulin, Cardizem)? @ -No Were any procedures done? @ -No Diagnosis/symptom? @ -Superficial laceration Acute, or Chronic, or Acute on Chronic? @ -Acute Uncomplicated (without systemic symptoms) or Complicated (systemic symptoms)? @ -Uncomplicated Side effects of treatment? @ -No Exacerbation, Progression, or Severe Exacerbation? @ -No Poses a threat to life or bodily function? How? (Chest pain, USA, OR, pneumonia, PE, COPD, DKA, ARF, appy, cholecystitis, CVA, Diverticulitis, Homicidal, Suicidal, threat to staff... and all critical care pts) @ -No Disposition Clinical Impression: Laceration Disposition: HOME SELF-CARE Condition: Good Instructions (If sedation given, give patient instructions): Laceration Without Closure (ED) Additional Instructions: Follow-up with PCP. Report back to ER with any new or worsening symptoms. Is patient prescribed a controlled substance at d/c from ED?: No Referrals: Sharon Don [Primary Care Provider] - 1-2 days Time of Disposition: 01:07
== END 2023-06-30 01:41 | disposition home or self-care (01) ==
LOC: EC 00:51
DX: S61.211A Laceration without foreign body of left index finger without damage to nail, initial encounter (principal); F17.290 Nicotine dependence, other tobacco product, uncomplicated; F12.90 Cannabis use, unspecified, uncomplicated; X58.XXXA Exposure to other specified factors, initial encounter
CPT/HCPCS: 12001; 99282